=== PATIENT | female | born 2000 | race Caucasian/White ===

== ENCOUNTER 2024-08-09 08:37 | Outpatient (CLI) | payer BC, SELFPAY | END 2024-08-09 08:38 | disposition home or self-care (01) | LOC: NFLDREF 08-11 11:03 | PROVIDERS: Visit Provider Physician Assistant | DX: R30.0 Dysuria (principal); R53.83 Other fatigue | CPT/HCPCS: 87086 ==

== ENCOUNTER 2024-12-02 18:07 | Emergency (ER) | payer BC, SELFPAY ==
--- OUTSIDE RECORDS SUMMARY | 2024-12-02 18:10 | XMS_ITS ---
Author Organization [facility] Address [address] [place], [place] [id number] Care Team Providers Care Cash Application Clerk Name Role Phone Catherine Sanford [facility] Provider REASON FOR VISIT PA for QFT Social History Sex Assigned At : Social History Observation Description Sex Assigned At Female Encounters Encounter Location Date Provider Diagnosis [facility] [address] [place], [place] [id number] 06/14/2024 Catherine Sanford Plan Of Treatment No Information Progress Notes * Donna COXDOB:1999 (23 yo F)Acc No.[id number]:06/14/2024 Patient: Donna JIMENEZ :2000 A ge:23 Y S ex:Female Address:[facility], [address] * true * Date: Generated for Robi mini/Porter/eTransmitting on: 0 12/02/2024 06:10 PM CLINICAL STAFF PHARMACIST
--- OUTSIDE RECORDS SUMMARY | 2024-12-02 18:10 | XMS_ITS | Encounter Summary ---
Author Organization [facility] Address [address] [place] [address] Phone Care Team Providers Care In Processing Instructor Name Role Phone Catherine Sanford APRN Primary Care Provider Reason for Visit * Reason Comments Asthma METHACHOLINE Encounter Details Date Type Department Care Team (Latest Contact Info) Description 10/10/2024 1:00 PM KNOTTER HAND Diagnostic Test [facility] Pulmonology and Peds Cardiology [address] [facility], [address] [place] [phone] Tristin Paiz MD [address] [facility] [address] [place] [address] Rambo Pisano MD [address] [facility] [address] [place], [place] [id number] Moderate persistent asthma in adult without complication (Primary Dx); Moderate persistent asthma, uncomplicated Social History Tobacco Use Types Packs/Day Years Used Date Smoking Tobacco: Never Smokeless Tobacco: Never Chew Alcohol Use Standard Drinks/Week Comments Never 0 (1 standard drink = 0.6 oz pur e alcohol) [facility] Utilities Answer Date Recorded In the past 12 months has [employer], gas, oil, or water company threatened to shut off services in your home? No 10/29/2023 Hunger Vital Sign Answer Date Recorded Within the past 12 months, y ou worried that your food would run out before you got the money to buy more. Never true 10/29/19 24 Within the past 12 months, t he food you bought just didn't last and you didn't have money to get more. Never true 10/29/2023 PRAPARE - Transportation Answer Date Re corded In the past 12 months, has l ack of transportation kept you from medical appointments or from getting medications? No 10/19 In the past 12 months, has l ack of transportation kept you from meetings, work, or from getting things needed for daily living? No 10/29/2023 Housing Stability Vital Sign Answer Jose Ramon e Recorded In the last 12 months, was t here a time when you were not able to pay the mortgage or rent on time? No 10/29/2023 In the last 12 months, how many places have you lived? 1 10/29/2023 In the last 12 months, was t here a time when you did not have a steady place to sleep or slept in a [facility] (including now)? No 10/29/2023 Interpersonal Safety Answer Date Record ed Feels Unsafe at Home or Work/School No 10/29/2023 Feels Threatened by Someone No 10/19 Does Anyone Try to Keep You From Having Contact with Others or Doing Things Outside Your Home? No 10/29/2023 Physical Signs of Abuse Present No 10/29/2023 Comments No Sex and Gender Information Value Date Recorded Sex Assigned at Not on file Legal Sex Female 3:27 PM KNOTTER HAND Gender Identity Not on file Sexual Orientation Not on file documented as of this encounter Procedure Notes * Tristin Paiz MD - 10/10/2024 2:58 PM CSTAssociated Order(s): PULMONARY FUNCTION TESTING Methacholine challenge test. Data. FEV1 over FVC ratio is 92 with FEV1 at 3.73 L or 102% predicted and FVC at 4.04 L or 95% predicted. Flow volume loops are normal. Patient is gradually exposed to increasing doses of methacholine. Patient FEV1 dropped by 7% on the5th dosage. Interpretation. The spirometry is normal. As compared to October 07, 2024 data, FEV1 and FVC are not significantlychanged. 2. Methacholine challenge testing is negative. TER HAND documented in this encounter Miscellaneous Notes * Addendum Note - Tristin Paiz MD - 10/10/2024 3:00 PM CSTAddended by: TRISTIN PAIZ MD on: 10/10/2024 03:00 PM Modules accepted: Level of Service TER HAND * Addendum Note - Adri Rinaldi RT - 10/10/2024 2:22 PM CSTAddended by: ADRI ABBOTT on: 10/10/2024 02:22 PM Modules accepted: Orders TER HAND documented in this encounter Plan of Treatment Not on file documented as of this encounter Procedures Procedure Name Priority Date/Time Associated Diagnosis Comments PULMONARY FUNCTION TESTING Routine 10/10/2024 12:53 PM KNOTTER HAND Moderate persistent asthma, uncomplicated documented in this encounter Results * PULMONARY FUNCTION TESTING (10/10/2024 12:53 PM KNOTTER HAND) FVC Pre BD 4.04 L [facility] FVC %Pred 95 L [facility] FVC Post BD 3.91 L [facility] FVC %Change Post BD -3 L [facility] FEV1 Pre BD 3.73 L [facility] FEV1 %Pred 102 L [facility] FEV1 Post BD 3.71 L [facility] FEV1 %Change Post BD 0 L [facility] [id number] Pre BD 92 % [facility] [id number] %Pred 106 % [facility] [id number] Post BD 95 % [facility] [id number] %Change Post BD 2 % [facility] FEF Max Pre BD 7.74 L/sec [facility] FEF Max %Pred 116 L/sec [facility] FEF Max Post BD 8.78 L/sec [facility] FEF Max %Change Post BD 13 L/sec [facility] 10/10/2024 12:5 3 PM KNOTTER HAND Narrative [facility] - 10/10/2024 2:58 PM KNOTTER HAND Tristin Paiz MD 10/10/2024 3:00 PM Methacholine challenge test. Data. FEV1 over FVC ratio is 92 with FEV1 at 3.73 L or 102% predicted and FVC at 4.04 L or 95% predicted. Flow volume loops are normal. Patient is gradually exposed to increasing doses of methacholine. Patient FEV1 dropped by 7% on the 5th dosage. Interpretation. The spirometry is normal. As compared to October 07, 2024 data, FEV1 and FVC are not significantly changed. 2. Methacholine challenge testing is negative. us Rambo Pisano MD PULMONARY FUNCTION TESTS Final R esult Performing Organization Address City/State/[facility] Co de Phone Number [facility] [address] [place] [address], documented in this encounter Visit Diagnoses Diagnosis Moderate persistent asthma in adult without complication- Primary Moderate persistent asthma, uncomplicated Unspecified asthma documented in this encounter Administered Medications Inactive Administered Medications - up to 3 most recent administrations Medication Order MAR Action Action Date Dose Rate Site albuterol sulfate 2.5 mg /3 mL (0.083 %) nebulizer solution 2.5 mg 2.5 mg (3 mL), Nebulization, ONE TIME, On Thu10/10/24 at 1425, For 1 doseIndications:Moderate persistent asthma in adult without complication Given 10/10/2024 2:21 PM KNOTTER HAND 2.5 mg methacholine chloride 0 mg/mL nebulization solution 6 breath, Inhalation, ONE TIME, On Thu10/10/24 at 1425, For 1 doseIndications:Moderate persistent asthma in adult without complication Given 10/10/2024 2:21 PM KNOTTER HAND 6 breaths methacholine chloride 0.1875 mg/3 mL (0.0625 mg/mL) nebulization solution 6 breath, Nebulization, ONE TIME, On Thu10/10/24 at 1425, For 1 doseIndications:Moderate persistent asthma in adult without complication Given 10/10/2024 2:21 PM KNOTTER HAND 6 breaths methacholine chloride 0.75 mg/3 mL (0.25 mg/mL) nebulization solution 6 breath, Nebulization, ONE TIME, On Thu10/10/24 at 1430, For 1 doseIndications:Moderate persistent asthma in adult without complication Given 10/10/2024 2:21 PM KNOTTER HAND 6 breaths methacholine chloride 12 mg/3 mL (4 mg/mL) nebulization solution 6 breath, Nebulization, ONE TIME, On Thu10/10/24 at 1430, For 1 doseIndications:Moderate persistent asthma in adult without complication Given 10/10/2024 2:21 PM KNOTTER HAND 6 breaths methacholine chloride 3 mg/3 mL (1 mg/mL) nebulization solution 6 breath, Nebulization, ONE TIME, On Thu10/10/24 at 1430, For 1 doseIndications:Moderate persistent asthma in adult without complication Given 10/10/2024 2:21 PM KNOTTER HAND 6 breaths methacholine chloride 48 mg/3 mL (16 mg/mL) nebulization solution 6 breath, Nebulization, ONE TIME, On Thu10/10/24 at 1435, For 1 doseIndications:Moderate persistent asthma in adult without complication Given 10/10/2024 2:21 PM KNOTTER HAND 6 breaths documented in this encounter Care Teams In Processing Instructor Relationship Specialty Start Date End Date Catherine Sanford, RANDEE [facility] [address] [place] [address] [place] [address] PCP - General Family Medicine 11/30/19 documented as of this encounter
--- OUTSIDE RECORDS SUMMARY | 2024-12-02 18:10 | XMS_ITS | Encounter Summary ---
Author Organization [facility] Address [address] [place] [address] Phone Care Team Providers Care Food And Drink Factory Workers Name Role Phone Catherine Sanford APRN Primary Care Provider Encounter Details Date Type Department Care Team (Late st Contact Info) Description 04/20/2024 Transcribe Orders Non [facility] Referring Docs Identified, No Provider Social History Tobacco Use Types Packs/Day Years Used Date Smoking Tobacco: Never Smokeless Tobacco: Never Chew Alcohol Use Standard Drinks/Week Comments Never 0 (1 standard drink = 0.6 oz pur e alcohol) [facility] Utilities Answer Date Recorded In the past 12 months has e [employer], gas, oil, or water [employer] threatened to shut off services in your [...] place to sleep or slept in a [place] (including now)? No 10/29/2023 Interpersonal Safety Answer [...] on file Legal Sex Female 3:27 PM CASINO FLOOR PERSON Gender Identity Not on file Sexual Orientation Not on file documented as of this encounter Plan of Treatment Not on file documented as of this encounter Visit Diagnoses Not on filedocumented in this encounter Care Teams Food And Drink Factory Workers Relationship Specialty Start Date End Date Catherine Sanford APRN [facility] [address] [place] [address] [place] [address] PCP - General Family Medicine 11/30/19 documented as of this encounter
--- OUTSIDE RECORDS SUMMARY | 2024-12-02 18:11 | XMS_ITS | Encounter Summary ---
Author Organization [facility] Address [address] [place] [address] Phone Care Team Providers Care Dispatcher Maintenance Service Name Role Phone Catherine Sanford APRN Primary Care Provider Encounter Details Date Type Department Care Team (Late st Contact Info) Description 05/03/2019 [facility] Historical [facility] Orthopedics Radiology [address] [phone] Conversion Prov, [facility] Social History Tobacco Use Types Packs/Day Years Used Date Smoking Tobacco: Never Assessed Comments Unknown Sex and Gender Information Value Date Recorded Sex Assigned at Not on file Legal Sex Female 3:27 PM CASTING SORTER Gender Identity Not on file Sexual Orientation Not on file documented as of this encounter Plan of Treatment Not on file documented as of this encounter Procedures Procedure Name Priority Date/Time Associated Diagnosis Comments ARNOL MISC FOR HISTORICAL MIGRATION 05/03/2019 5:07 PM CDT documented in this encounter Results * ARNOL MISC FOR HISTORICAL MIGRATION (05/03/2019 5:07 PM CDT) Anatomical Region Laterality Modality Computed Radiogr aphy 05/03/2019 5:07 PM CDT Narrative 05/03/2019 5:07 PM CDT This exam is part of the [facility] migration. The results may be available through the Clinical Archive option located in the [employer] activities tab. Procedure Note Conversion Prov, [facility] - 06/04/2022 This exam is part of the [facility] migration. The results may be availablethrough the Clinical Archive option located in the [employer] activities tab. us [facility] Conversion Prov X-RAY (OUTSIDE STUDY) Final Result documented in this encounter Visit Diagnoses Not on filedocumented in this encounter Additional Health Concerns Infection Onset Date Last Indicated Resolved Time Suspected COVID-19 10/29/2023 10/29/2023 9:02 AM CASTING SORTER RSV 10/29/2023 10/29/2023 11/05/2023 10:0 3 PM CASTING SORTER Mycoplasma Pneumonia 10/31/2023 10/31/2023 024 10:03 PM CASTING SORTER documented as of this encounter Care Teams Dispatcher Maintenance Service Relationship Specialty Start Date End Date Catherine Sanford APRN [facility] [address] [place] [address] [place] [address] PCP - General Family Medicine 11/30/19 documented as of this encounter
--- OUTSIDE RECORDS SUMMARY | 2024-12-02 18:11 | XMS_ITS | Encounter Summary ---
Author Organization [facility] Address [address] [facility] [place] [address] Phone Care Team Providers Care Treating Plant Pumper Name Role Phone Lucas Sanford APRN, CNP Primary Care Prov ider Drake Mendenhall MD Unavailable Encounter Details Date Type Department Care Team (Late st Contact Info) Description 04/02/2020 10:50 AM CDT Hospital Encounter [facility] GI Lab Periop [address] [place] [address] Lux Florez MD [address] [place] [address] Social History Tobacco Use Types Packs/Day Years Used Date Smoking Tobacco: Never Smokeless Tobacco: Never Alcohol Use Standard Drinks/Week Comments Never 0 (1 standard drink = 0.6 oz pur e alcohol) AUDIT-C Answer Date Recorded Frequency of Alcohol Consumption Never 02/08/2019 Average Number of Drinks Not on file 019 Frequency of Binge Drinking Not on file 01/18 Comments No Sex and Gender Information Value Date Recorded Sex Assigned at Not on file Legal Sex Female 10:18 AM CDT Gender Identity Not on file Sexual Orientation Not on file COVID-19 Exposure Response Date Recorded In the last 10 days, have yo u been in contact with someone who was confirmed or suspected to have Coronavirus/COVID-19? No / Unsure 04/18/2022 3:41 PM CDT documented as of this encounter OR Notes * OR Surgeon - Perla Garcia MD - 04/03/2020 1:33 PM CDT 24 HOUR pH MONITORING (SANCHEZ) STUDY PROCEDURE NOTE Donna Jarvis 2000 female LUCAS Stefanie SANFORD, MOLD MOVER, ENGAGEMENT MGR DATE OF PROCEDURE:04/03/2020 PHYSICIAN OR SURGEON: Lux Florez MD FELLOW: PERLA GARCIA MD PRE-PROCEDURE DIAGNOSIS: Dyspepsia Dysphagia POST-PROCEDURE DIAGNOSIS: Pathological acid Reflux with elevated DeMeester score PROCEDRURE INFO: The patient presented to the gastroenterology lab for the study.Esophageal Manometry had been performed. The SANCHEZ pH probe was deployed endoscopically above the GE junction. The study was carried out and the results were forwarded for interpretation. Patient has been off PPI for the study. FINDINGS: Threshold pH 4.0 Period Durations (HH:MM) Total Upright Supine Post-prandial Total Time 71:52 35:39 36:14 22:47 Analysis time 67:31 31:46 35:45 22:47 Acid Reflux Analysis Total Upright Supine Post-prandial Acid exposure time (HH:MM) 4:04 02:44 01:20 02:20 Acid exposure time (%) 6.0 8.6 3.7 9.5 Number of refluxes 66 51 16 46 Number of long refluxes 13 9 4 7 Longest reflux (min) 33.0 27.1 33.0 27.1 DeMeester Score ( Normal < 14.72) 22.1 Symptom Analysis Food Stuck Sensation Burping Dysphagia No of occurrences 2 10 1 No of symptoms related to reflux 1 1 0 No of symptoms not related to acid reflux 1 9 1 No of reflux periods 66 66 66 Symptom Index (SI) 50 10 0 Symptom sensitivity index (SSI) 1.5 1.5 0 Symptom Association probability (SAP)* *Probability the symptom and reflux are not associated solely by chance (> 95% is significant) 80.4 78.5 0.0 SUMMARY: This study demonstrated multiple episodes of reflux, many of these in the upright position for a DeMeester score of 22.1, which falls in the pathologic range and consistent with gastro-esophageal reflux disease. Referring Physician: * No referring provider recorded for this case * Attending Physician: Lux Florez, * Primary Care Physician: LUCAS SANFORD APN, CULLEN Cosigned by Lux Florez MD at 04/04/2020 12:08 PM CDT Associated attestation - Lux Florez MD - 04/04/2020 12:08 PM CDT Donna Jarvis 19 y.o. 2000 04/04/2020 DATE OF PROCEDURE: 04/02/2020 PHYSICIAN OR SURGEON: Lux Florez MD PROCEDURE PERFORMED: SANCHEZ study Attending Attestation: I have reviewed the SANCHEZ study with the fellow and have personally looked at the findings on the reporting software. I agree with the above interpretation. SANCHEZ study Is abnormal with a DeMeester score of 22.1 which is suggestive of pathologic reflux. However, of note this symptom association probability (SAP) for the symptoms of dysphagia, burping and food bolus sensation was not significant. Lux Florez MD, 04/04/2020, 12:07 PM documented in this encounter Plan of Treatment Not on file documented as of this encounter Visit Diagnoses Not on filedocumented in this encounter Care Teams Treating Plant Pumper Relationship Specialty Start Date End Date Lucas Sanford, RANDEE, CULLEN [address] [place] [address] PCP - General Certified Nurse Practitioner 02/01/19 Drake Mendenhall MD [address] [facility] [address] [facility] [address] [place] [phone] Consulting Physician Pediatric Gastroenterology 02/01/19 documented as of this encounter
--- OUTSIDE RECORDS SUMMARY | 2024-12-02 18:11 | XMS_ITS ---
Author Organization [facility] Address [address] [place], [place] [id number] Care Team Providers Care Machine Tack Puller Name Role Phone Catherine Sanford [facility] Provider [phone] REASON FOR VISIT stone analysis report Social History Sex Assigned At : Social History Observation Description Sex Assigned At Female Encounters Encounter Location Date Provider Diagnosis [facility] [address] [place], [place] [phone] 06/17/2024 Catherine Sanford Plan Of Treatment No Information Progress Notes * Donna COXDOB:1999 (23 yo F)Acc No.[id number]:06/17/2024 Patient: Donna JIMENEZ :2000 A ge:23 Y S ex:Female Address:[facility] [place], [address] * true * Date: Generated for Robi mini/Porter/eTransmitting on: 0 12/02/2024 06:10 PM PATIENT BILLER
--- OUTSIDE RECORDS SUMMARY | 2024-12-02 18:11 | XMS_ITS | Clinical Summary ---
[facility] Organization [facility] Address [address] [place] [address] Phone Care Team Providers Care Upper Leather Cutter Name Role Phone Catherine Sanford APRN Primary Care Provider Allergies No known active allergies Medications * This document contains information received from the source organization and may not represent a complete record from that organization. sertraline (ZOLOFT) 50 mg tablet Take 50 mg by mouth every day Active ondansetron [address] tablet Place 4 mg under the tongue every 6 hours as needed for nausea or vomiting 4 Active ondansetron 4 mg rapid dissolve tabletIndication s:Nausea and vomiting, unspecified vomiting type Take 1 tablet (4 mg total) by mouth 2 (two) times daily as needed for nausea 10 tablet 4 Active Additional Information Patient not taking.Reported on 10/13/2024 minocycline 50 mg capsule Take 50 mg by mouth in the morning and at bedtime Limes Disease Active albuterol HFA 90 mcg/actuation inhalerIndicatio ns:Shortness of breath Take 2 puffs inhaled by mouth every 4 (four) hours as needed for shortness of breath Take before exercise by 20 minutes, do peak flow before and after exercise 18 g 2 4 10/13/20 25 Active inhalational spacing device (AEROCHAMBER) SPACER ONLY Use with albuterol inhaler 1 each 4 Active Active Problems Problem Noted Date Diagnosed Date Shortness of breath 10/13/2024 Eosinophilic esophagitis 10/13/2024 Community acquired bacterial pneumonia 4 RSV infection 10/29/2023 Chronic GERD 10/29/2023 Hypokalemia 10/29/2023 Encounters * This document contains information received from the source organization and may not represent a complete record from that organization. Date Type Department Care Team Description 10/13/2024 8:55 AM HOME SECURITY ALARM INSTALLER Office Visit [facility] [address], [address] [place] [address] Rambo Pisano MD Shortness of breath (Primary Dx); RSV infection; Eosinophilic esophagitis 10/10/2024 1:00 PM HOME SECURITY ALARM INSTALLER Diagnostic Test [facility] [address], [address] [place] [address] Tristin Miranda MD Burr, John S, MD Moderate persistent asthma in adult without complication (Primary Dx); Moderate persistent asthma, uncomplicated 10/10/2024 Orders Only [facility] [address] [facility], [address] [place] [address] Rambo Pisano MD Moderate persistent asthma, uncomplicated (Primary Dx) 10/07/2024 9:30 AM HOME SECURITY ALARM INSTALLER Diagnostic Test [facility] [address], [address] [place] [address] Constance Mcdaniels MD Moderate persistent asthma, uncomplicated; Eosinophilic esophagitis; Allergy to other foods 10/07/2024 Telephone [facility] [address], [address] [place] [address] Rambo Pisano MD 09/28/2024 Telephone Non [facility] Constance Osorio MD from Last 3 Months Immunizations Name Administration Dates Next Due DTaP-Daptacel (Diptheria, Te tanus, Pertussis) 09/23/2005,11/29/2002,02/22/2002,12/13,2001 HEP B/HIB (Comvax) 11/29/2002,2001, 001 Hepatitis A - Pediatric 09/24/2006,03/25/2005 Human Papillomavirus (Gardasil 9) 06/03/2023 INFLUENZA SPLIT VIRUS TRIVAL ENT PF (Fluzone/Flulaval/Fluarix/Afluria PF) 10/06/2017,10/05/2016 Influenza (Afluria Quad) 11/27/2010,10/24/2009 Influenza (Flu Quad PF) 08/28/2020,09/30,10/08/2015,10/05,09/29/2012 Influenza A (H1N1) Injection 11/28/2009,10/24/19 10 Oozkoiw-Zdbkv-Buuqncg - MMR 03/16/2007, 2 Polio Virus (IPOL) 03/16/2007, 2,2001,10/04 T-dap (ADACEL) 06/03/2023,03/16/2013 Varicella (VARIVAX) 03/16/2007,08/09/2002 Family History Medical History Relation Name Comments Sleep Apnea Father Cancer Mother Relation Name Status Comments Brother 1 Alive Brother 2 Alive Father Alive Mother Alive Social History Tobacco Use Types Packs/Day Years Used Date Smoking Tobacco: Never Smokeless Tobacco: Never Chew Tobacco Cessation:Counseling Given: Not Answered Alcohol Use Standard Drinks/Week Comments Never 0 (1 standard drink = 0.6 oz pur e alcohol) [facility] Utilities Answer Date Recorded In the past 12 months has th e [employer], [employer], oil, or water [employer] threatened to shut off services in your [...] place to sleep or slept in a assisted (including now)? No 10/29/2023 Interpersonal Safety Answer [...] on file Legal Sex Female 3:27 PM HOME SECURITY ALARM INSTALLER Gender Identity Not on file Sexual Orientation Not on file Last Filed Vital Signs Vital Sign Reading Time Taken Comments Blood Pressure 108/62 10/13/2024 8:52 AM HOME SECURITY ALARM INSTALLER Pulse 87 10/13/2024 8:52 AM HOME SECURITY ALARM INSTALLER Temperature 37.3 C (99.1 F) 04/15/2024 10:25 AM CDT Respiratory Rate 26 04/15/2024 11:15 AM CDT Oxygen Saturation 99% 10/13/2024 8:52 AM HOME SECURITY ALARM INSTALLER Inhaled Oxygen Concentration - - Weight 67 kg (147 lb 11.3 oz) 10/13/2024 8:52 AM HOME SECURITY ALARM INSTALLER Height 175.3 cm (5' 9) 10/13/2024 8:52 AM HOME SECURITY ALARM INSTALLER Body Mass Index 21.81 10/13/2024 8:52 AM HOME SECURITY ALARM INSTALLER Plan of Treatment Health Maintenance Due Date Last Done Comments Pneumococcal Vaccines (0-64 Years) (1 of 2 - PCV) 2007 Chlamydia Screening 2016 Pap Smear 2022 COVID-19 Vaccine ( season) 2024 01/29/2021, 01/01/2021 Influenza Vaccine (#1) 2024 , 09/30/2018, 09/30/2018, Additional history exists Depression Screening 10/13/2025 10/13/2024, 10/05/2024, 06/17/2024, Additional history exists DTaP/Tdap/Td Vaccines (8 - Td or Tdap) 06/03/2033 06/03/2023, 03/16/2013, 09/23/2005, Additional history exists HIB Vaccines Completed 11/29/2002, 11/19, 2001, Additional history exists Hepatitis B Vaccines Completed 11/29/2002, 11/29/2002, 2001, Additional history exists Hepatitis A Vaccines Completed 09/24/2006, 09/24/2006, 03/25/2005, Additional history exists IPV Vaccines Completed 03/16/2007, 07/20, 2001, Additional history exists MMR Vaccines Completed 03/16/2007, 08/09/2002 Varicella Vaccines Completed 03/16/2007, 08/09/2002 Meningococcal Vaccine (ACWY) Completed 06/02/2019 HPV Vaccines Completed 06/03/2023, 11/2020, 06/02/2019 Rotavirus Vaccines Aged Out No longer eligible based on patient's age to complete this topic Procedures Procedure Name Priority Date/Time Associated Diagnosis Comments PULMONARY FUNCTION TESTING Routine 10/10/2024 12:53 PM HOME SECURITY ALARM INSTALLER Moderate persistent asthma, uncomplicated PULMONARY FUNCTION TESTING Routine 10/07/2024 9:12 AM HOME SECURITY ALARM INSTALLER Moderate persistent asthma, uncomplicated Eosinophilic esophagitis Allergy to other foods from Last 3 Months Results * PULMONARY FUNCTION TESTING (10/10/2024 12:53 PM HOME SECURITY ALARM INSTALLER) FVC Pre BD 4.[address] [facility] FVC %Pred [address] [facility] FVC Post BD 3.[address] [facility] FVC %Change Post BD -[address] [facility] FEV1 Pre BD [address] [facility] FEV1 %Pred [address] [facility] FEV1 Post BD 3.[address] [facility] FEV1 %Change Post BD [address] [facility] [id number] Pre BD 92 % [facility] [id number] %Pred 106 % [facility] [id number] Post BD 95 % [facility] [id number] %Change Post BD 2 % [facility] FEF Max Pre BD 7.74 L/sec [facility] FEF Max %Pred 116 L/sec [facility] FEF Max Post BD 8.78 L/sec [facility] FEF Max %Change Post BD 13 L/sec [facility] 10/10/2024 12:5 3 PM HOME SECURITY ALARM INSTALLER Narrative [facility] - 10/10/2024 2:58 PM HOME SECURITY ALARM INSTALLER Tristin Miranda MD 10/10/2024 3:00 PM Methacholine challenge test. [...] TESTS Final R esult Performing Organization Address City/State/[facility] Co de Phone Number [facility] [address] [place] [address], * PULMONARY FUNCTION TESTING (10/07/2024 9:12 AM HOME SECURITY ALARM INSTALLER) FVC Pre BD 3.[address] [facility] FVC %Pred [address] [facility] FVC Post BD 3.[address] [facility] FVC %Change Post BD [address] [facility] FEV1 Pre BD 3.[address] [facility] FEV1 %Pred [address] [facility] FEV1 Post BD 3.[address] [facility] FEV1 %Change Post BD [address] [facility] [id number] Pre BD 92 % [facility] [id number] %Pred 106 % [facility] [id number] Post BD 93 % [facility] [id number] %Change Post BD 1 % [facility] FEF Max Pre BD 6.93 L/sec [facility] FEF Max %Pred 104 L/sec [facility] FEF Max Post BD 8.09 L/sec [facility] FEF Max %Change Post BD 16 L/sec [facility] SVC Pre BD 3.[address] [facility] SVC %Pred [address] [facility] RV (Pleth) Pre BD 2.[address] [facility] RV (Pleth) %Pred [address] [facility] TLC (Pleth) Pre BD 5.[address] [facility] TLC (Pleth) %Pred [address] [facility] RVTLC (Pleth) Pre BD 40 % [facility] RVTLC (Pleth) %Pred 168 % [facility] DLCOunc Pre BD 32.91 ml/min/mmH g [facility] DLCOunc %Pred 133 ml/min/mmH [facility] 10/07/2024 9:12 AM HOME SECURITY ALARM INSTALLER Narrative [facility] - 10/10/2024 10:40 AM HOME SECURITY ALARM INSTALLER Tristin Miranda MD 10/10/2024 10:44 AM Data. FEV1 over FVC ratio is 92 with FEV1 at 3.62 L or 99% predicted and FVC at 3.92 L or 92% predicted. There is no significant response to albuterol. Total lung capacity is 5.7 L or 99% predicted. Residual volume is 2.3 L or 156% predicted. DLCO is 32.91 or 133% predicted. Flow volume loops are normal. Interpretation. The spirometry is normal. The lung volumes show air trapping which may be explained with early obstructive lung disease with given history of asthma. DLCO is higher than expected which may be normal variation, and unlikely to be due to alveolar hemorrhage in outpatient settings. us Constance Mcdaniels MD PULMONARY FUNCTION TESTS Fin al Result [facility] [address] [place] [address], from Last 3 Months Insurance [place] [employer] [facility] Blue [employer] Commercial (POS, PPO, etc) Address: [place] [address] [facility] Cross Blue Shield Commercial (POS, PPO, etc) Address: [place] [address] [facility] Cross Blue Shield Commercial (POS, PPO, etc) Address: [id number] [place] [phone] [employer] [facility] Cross Blue Shield Commercial (POS, PPO, etc) Address: [facility] [id number] [place] [phone] Advance Directives For more information, please contact: [phone] * Attempt CPR / Full Treatment (Latest Code Status on File) Date Activated Date Inactivated Comments 10/29/2023 5:02 PM 11/02/2023 1:40 PM Care Teams Upper Leather Cutter Relationship Specialty Start Date End Date Catherine Sanford APRN [facility] [address] [place] [address] [address] [place] [id number] PCP - General Family Medicine 11/30/19
--- OUTSIDE RECORDS SUMMARY | 2024-12-02 18:11 | XMS_ITS | Clinical Summary ---
Author Organization [facility] Address [address] [place] [address] Care Team Providers Care Technology Project Manager Name Role Phone Catherine Sanford Primary Care Provider Social History Tobacco Use Types Packs/Day Years Used Date Smoking Tobacco: Never Assessed Inadequate Housing Answer Date Recorded Social Determinants: Housing (Overall Score Help er) 0 12/21/2019 Sex and Gender Information Value Date Recorded Sex Assigned at Female 02/08/2020 12:05 PM CDT Gender Identity Female 02/08/2020 12:05 PM CDT Sexual Orientation Straight 02/08/2020 12 :05 PM CDT Plan of Treatment Health Maintenance Due Date Last Done Comments Depression Screening 2013 HPV Vaccine (1 - 3-dose series) 2016 Meningococcal Serogroup B Vaccine (1 of 2 - Standard) 2017 Chlamydia and Gonorrhea Screening (if sexually active) 2019 DTaP/Tdap/Td Vaccine (7 - Td or Tdap) 03/16/2023 03/16/2013, 09/23/2005, 11/29/2002, Additional history exists COVID-19 Vaccine ( season) 2024 Influenza Vaccine (#1) 2024 8, 10/06/2017, 10/05/2016, Additional history exists Hepatitis B Vaccine Completed 11/29/2002, 2001, 2001 Hepatitis A Vaccine Completed 09/24/2006, 5 Varicella Vaccine Completed 03/16/2007, 08/09/2002 Meningococcal Vaccine Aged Out No meenakshi adan eligible based on patient's age to complete this topic Pneumococcal Vaccine 0-49 Aged Out No longer eligible based on patient's age to complete this topic Care Teams Technology Project Manager Relationship Specialty Start Date End Date Catherine Sanford APNP [address] [place] [address] [place] [address] PCP - General Nurse Practitioner - Family 12/21/19
--- OUTSIDE RECORDS SUMMARY | 2024-12-02 18:11 | XMS_ITS | Encounter Summary ---
[facility] Address [address] [place] [address] Phone Care Team Providers Care Local Company Flatbed Truck Driver Name Role Phone Catherine Sanford APRN Primary Care Provider Encounter Details Date Type Department Care Team (Late st Contact Info) Description 08/23/2020 Scanned Document [facility] [address] [place] [address] Provider, Outside Social History Tobacco Use Types Packs/Day Years Used Date Smoking Tobacco: Never Assessed Comments Unknown Sex and Gender Information Value Date Recorded Sex Assigned at Not on file Legal Sex Female 3:27 PM PARTNER INTEGRATION PLANNER Gender Identity Not on file Sexual Orientation Not on file documented as of this encounter Plan of Treatment Not on file documented as of this encounter Visit Diagnoses Not on filedocumented in this encounter Additional Health Concerns Infection Onset Date Last Indicated Resolved Time Suspected COVID-19 10/29/2023 10/29/2023 9:02 AM PARTNER INTEGRATION PLANNER RSV 10/29/2023 10/29/2023 11/05/2023 10:0 3 PM PARTNER INTEGRATION PLANNER Mycoplasma Pneumonia 10/31/2023 10/31/2023 024 10:03 PM PARTNER INTEGRATION PLANNER documented as of this encounter Care Teams Local Company Flatbed Truck Driver Relationship Specialty Start Date End Date Catherine Sanford APRN [facility] [address] [place] [address] [place] [address] PCP - General Family Medicine 11/30/19 documented as of this encounter
--- OUTSIDE RECORDS SUMMARY | 2024-12-02 18:11 | XMS_ITS | Encounter Summary ---
Author Organization [facility] Address [address] [place] [address] Phone Care Team Providers Care Microfabrication Engineer Manager Name Role Phone Catherine Sanford APRN Primary Care Provider Encounter Details Date Type Department Care Team (Late st Contact Info) Description 02/04/2017 [facility] [place] [facility] Orthopedics Radiology [address] [address] Conversion Prov, [facility] Social History Tobacco Use Types Packs/Day Years Used Date Smoking Tobacco: Never Assessed Comments Unknown Sex and Gender Information Value Date Recorded Sex Assigned at Not on file Legal Sex Female 3:27 PM CHIEF DIGITAL MEDIA OFFICER Gender Identity Not on file Sexual Orientation Not on file documented as of this encounter Plan of Treatment Not on file documented as of this encounter Procedures Procedure Name Priority Date/Time Associated Diagnosis Comments XR UPPER EXTREMITY FOR HISTORICAL MIGRATION 02/04/2017 6:36 PM CDT documented in this encounter Results * XR UPPER EXTREMITY FOR HISTORICAL MIGRATION (02/04/2017 6:36 PM CDT) Anatomical Region Laterality Modality Arm Computed Radiogr aphy 02/04/2017 6:36 PM CDT Narrative 02/04/2017 6:36 PM CDT This exam is part of the [facility] migration. The results may be available through the Clinical Archive option located in the [employer] activities tab. Procedure Note Conversion Prov, [facility] - 06/04/2022 This exam is part of the [facility] migration. The results may be availablethrough the Clinical Archive option located in the [employer] activities tab. us [facility] Conversion Prov X-RAY (OUTSIDE STUDY) Final Result documented in this encounter Visit Diagnoses Not on filedocumented in this encounter Additional Health Concerns Infection Onset Date Last Indicated Resolved Time Suspected COVID-19 10/29/2023 10/29/2023 9:02 AM CHIEF DIGITAL MEDIA OFFICER RSV 10/29/2023 10/29/2023 11/05/2023 10:0 3 PM CHIEF DIGITAL MEDIA OFFICER Mycoplasma Pneumonia 10/31/2023 10/31/2023 024 10:03 PM CHIEF DIGITAL MEDIA OFFICER documented as of this encounter Care Teams Microfabrication Engineer Manager Relationship Specialty Start Date End Date Catherine Sanford APRN [facility] [address] [place] [address] [place] [address] PCP - General Family Medicine 11/30/19 documented as of this encounter
--- OUTSIDE RECORDS SUMMARY | 2024-12-02 18:11 | XMS_ITS | Encounter Summary ---
Author Organization [facility] Address [address] [place] [address] Phone Care Team Providers Care Tool Machinist Name Role Phone Catherine Sanford APRN Primary Care Provider Encounter Details Date Type Department Care Team (Late st Contact Info) Description 11/30/2019 Scanned Document NON LOS REFERRING DOCS Catherine Sanford APRN [facility] [address] [place] [address] [place], [place] [id number] Social History Tobacco Use Types Packs/Day Years Used Date Smoking Tobacco: Never Assessed Comments Unknown Sex and Gender Information Value Date Recorded Sex Assigned at Not on file Legal Sex Female 3:27 PM RESIDENTIAL THERAPIST Gender Identity Not on file Sexual Orientation Not on file documented as of this encounter Plan of Treatment Not on file documented as of this encounter Visit Diagnoses Not on filedocumented in this encounter Additional Health Concerns Infection Onset Date Last Indicated Resolved Time Suspected COVID-19 10/29/2023 10/29/2023 9:02 AM RESIDENTIAL THERAPIST RSV 10/29/2023 10/29/2023 11/05/2023 10:0 3 PM RESIDENTIAL THERAPIST Mycoplasma Pneumonia 10/31/2023 10/31/2023 024 10:03 PM RESIDENTIAL THERAPIST documented as of this encounter Care Teams Tool Machinist Relationship Specialty Start Date End Date Catherine Sanford APRN [facility] [address] [place] [address] [place] [address] PCP - General Family Medicine 11/30/19 documented as of this encounter
--- OUTSIDE RECORDS SUMMARY | 2024-12-02 18:11 | XMS_ITS | Referral Summary ---
Author Organization [facility] Address [address] [place] [address] Care Team Providers Care Pc Installation Engineer Name Role Phone Catherine Sanford Primary Care [...] 12 :05 PM CDT Plan of Treatment Not on file Care Teams Pc Installation Engineer Relationship Specialty Start Date End Date Catherine Sanford APNP [address] [place] [address] [place] [address] PCP - General Nurse Practitioner - Family 12/21/19
--- OUTSIDE RECORDS SUMMARY | 2024-12-02 18:11 | XMS_ITS | Encounter Summary ---
[facility] [address] [place] [address] Phone Care Team Providers Care Union Organiser Name Role Phone Catherine Sanford APRN Primary Care Provider Encounter Details Date Type Department Care Team (Late st Contact Info) Description 11/22/2020 Scanned Document [facility] [place] [address] [place] [address] Provider, Outside Social History Tobacco Use Types Packs/Day Years Used Date Smoking Tobacco: Never Assessed Comments Unknown Sex and Gender Information Value Date Recorded Sex Assigned at Not on file Legal Sex Female 3:27 PM RETURNED MATERIALS INSPECTOR Gender Identity Not on file Sexual Orientation Not on file documented as of this encounter Plan of Treatment Not on file documented as of this encounter Visit Diagnoses Not on filedocumented in this encounter Additional Health Concerns Infection Onset Date Last Indicated Resolved Time Suspected COVID-19 10/29/2023 10/29/2023 9:02 AM RETURNED MATERIALS INSPECTOR RSV 10/29/2023 10/29/2023 11/05/2023 10:0 3 PM RETURNED MATERIALS INSPECTOR Mycoplasma Pneumonia 10/31/2023 10/31/2023 024 10:03 PM RETURNED MATERIALS INSPECTOR documented as of this encounter Care Teams Union Organiser Relationship Specialty Start Date End Date Catherine Sanford APRN [facility] [address] [place] [address] PCP - General Family Medicine 11/30/19 documented as of this encounter
--- OUTSIDE RECORDS SUMMARY | 2024-12-02 18:11 | XMS_ITS | Clinical Summary ---
Author Organization [facility] Address [address] [place] [address] Phone Care Team Providers Care Director Of Environmental Services Name Role Phone Catherine Sanford APRN, CNP Primary Care Prov ider Drake Mendenhall MD Unavailable Lux Florez MD Unavailable [phone] Allergies No known active allergies Medications omeprazole (PRILOSEC) 20 MG CAPSULE DELAYED RELEASE Take 1 Cap by mouth 2 times daily. 180 Cap 3 04/04/2020 Active Active Problems Problem Noted Date Diagnosed Date Gastroesophageal reflux disease with esophagitis 04/04/2020 Social History Tobacco Use Types Packs/Day Years [...] Sign Reading Time Taken Comments Blood Pressure 110/72 04/04/2020 11:17 AM CDT Pulse 72 04/04/2020 11:17 AM CDT Temperature 37 C (98.6 F) 04/04/2020 11:17 AM CDT Respiratory Rate 16 03/30/2020 10:44 AM CDT Oxygen Saturation 100% 03/30/2020 10:44 AM CDT Inhaled Oxygen Concentration - - Weight 62.6 kg (138 lb) 04/04/2020 11:17 AM CDT Height 172.7 cm (5' 8) 04/04/2020 11:17 AM CDT Body Mass Index 20.98 04/04/2020 11:17 AM CDT Plan of Treatment Health Maintenance Due Date Last Done Comments Hepatitis C Virus (HCV) Screening 2001 Meningococcal B Immunization (1 of 2 - Standard) 2017 Pap Smear 2022 Influenza Immunization (#1) 06/19/202410/2021, 09/13/2021, 08/28/2020, Additional history exists SARS-COV-2 Immunization () 06/19/2024 10/06/2022, 09/11/2021, 01/29/2021, Additional history exists Respiratory Syncytial Virus (RSV) Immunization (Adult) (1 - 1-dose 75+ series) 2076 Hepatitis B Immunization Completed 003, 2001, 2001 Hepatitis A Immunization Discontinued 09/24/2006, 04/2005 Measles Mumps Rubella (MMR) Immunization Discontinued 03/16/2007, 08/09/2002 Polio (IPV) Immunization Discontinued 007, 08/09/2002, 2001, Additional history exists Varicella Immunization Discontinued 03/16/2007, 2001 Meningococcal Immunization (ACWY) Completed 06/02/2019 DTaP/Tdap/Td Immunization Discontinued 2022, 03/16/2013, 09/23/2005, Additional history exists Human Papillomavirus (HPV) Immunization Completed 06/03/2023, 04/19/2021, 06/02/2019 TdaP Immunization Completed 06/03/2023, 03/16/2013 Pneumococcal Immunization Combined Aged Out No longer eligible based on patient's age to complete this topic Rotavirus Immunization Aged Out No lo nger eligible based on patient's age to complete this topic Insurance [email or web address] [place] [facility] [employer] [place] [facility] * Guarantor: [facility] Account Type Relation to Patient Date of Phone Billing Address Institutional Other [address] [facility] [address] [address] [place] [address] Care Teams Director Of Environmental Services Relationship Specialty Start Date End Date Catherine Sanford APRN, SHIFT PRODUCTION SUPERVISOR [address] [facility] [address] [place] [address] PCP - General Certified Nurse Practitioner 02/01/19 Drake Mendenhall MD [address] [facility] [address] [place] [address] Consulting Physician Pediatric Gastroenterology 02/01/19 Lux Florez MD [address] [place] [address] Consulting Physician Gastroenterology 04/04/20
--- OUTSIDE RECORDS SUMMARY | 2024-12-02 18:11 | XMS_ITS ---
Author Organization [facility]. Address [address] [place], [place] [address] Care Team Providers Care Patient Manager Name Role Phone Claribel Catherine Primary Care Provider Results Component Value Reference Range Notes QUANTIFERON - TB GOLD Reviewed date:06/18/2024 09:42:46 AM Interpretation: Performing Lab: Notes/Report: QFT CRITERIA Comment QuantiFERON-TB Gold Plus is a qualitative indirect test for M tuberculosis infection (including disease) and is intended for use in conjunction with risk assessment, radiography, and other medical and diagnostic evaluations. The QuantiFERON-TB Gold Plus result is determined by subtracting the Nil value from either TB antigen (Ag) value. The Mitogen tube serves as a control for the test. Test performed at: [facility] [address], [id number]. Phone: [phone]. Technology Director: Kirk Harrison, PhD QUANTIFERON Negative Negative No response to M tuberculosis antigens detected. Infection with M tuberculosis is unlikely, but high risk individuals should be considered for additional testing (ATS/IDSA/CDC Clinical Practice Guidelines, 2017). The reference range is an Antigen minus Nil result of <0.35 IU/mL. The specimen received for QuantiFERON testing was incubated by the ordering institution. Specific procedures outlined in our Directory of Services and in the package insert for the QuantiFERON Gold (In Tube) test must be followed to enable for proper stimulation of cells for the production of interferon gamma. Chemiluminescence immunoassay methodology Test performed at: [facility] [place], [address] [place] [address], [id number]. Phone: [phone]. Technology Director: Kirk Harrison PhD NIL VALUE 0.01 Test performed at: [facility], [address] [place] [address], [id number]. Phone: [phone]. Technology Director: Kirk Harrison PhD MITOGEN VALUE > 10.00 Test performed at: [facility], [address] [place] [address], [id number]. Phone: [phone]. Technology Director: Kirk Harrison PhD TB1 AG VALUE 0.02 Test performed at: [facility], [address] [place] [address], [id number]. Phone: [phone]. Technology Director: Kirk Harrison PhD TB2 AG VALUE 0.02 Test performed at: [address], [id number]. Phone: [phone]. Technology Director: Kirk Harriosn PhD Unless otherwise indicated, all tests performed at: [facility] (CLIA#: [id number]) NPI# [id number] [place] [address] Technology Director: SANA BARNES M.D. PDF Report ADTX REASON FOR VISIT Quantiferon Gold TB test Medications Medication SIG (Take, Route, Frequency, Duration) Notes Start Date End Date Status Doxycycline 40 MG 1 capsule in the mor mendez on an empty stomach Orally Once a day Active EpiPen 2-Jas 0.3 MG/0.3ML as directed In jection as directed for 1 month Active Sertraline HCl 50 MG 1 tablet Orally daily Active Social History Sex Assigned At : Social History Observation Description Sex Assigned At Female Encounters Encounter Location Date Provider Diagnosis [address] [place] [place], [place] [id number] 06/14/2024 Catherine Warwick Tuberculosis screening Z11.1 Assessments Encounter Date Diagnosis (ICD Code) Assessment Notes Treatment Notes Treatment Clinical Notes Section Notes 06/14/2024 Tuberculosis screening (ICD-10 - Z11.1) Plan Of Treatment No Information Progress Notes * Donna SEGOVIADOB:1999 (23 yo F)Acc No.[id number]:06/14/2024 Progress Notes Patient: Boo LOMBARDO Donna MADDOX Provider: Boo Sanford CNP :2000 A ge:23 Y S ex:Female Date:06/14/2024 Address:[facility] [address], [place], [facility] Subjective: * Chief Complaints: * 1 . Quantiferon Gold TB test. * Medical History: * Medications: T aking Doxycycline 40 MG Capsule Delayed Release 1 capsule in the morning on an empty stomach Orally Once a day , Taking EpiPen 2-Jas 0.3 MG/0.3ML Solution Auto- injector as directed Injection as directed , Taking Sertraline HCl 50 MG Tablet 1 tablet Orally daily Objective: * Vitals: Assessment: * Assessment: 1. T uberculosis screening - Z11.1 Plan: * Treatment: * Labs: * L ab: QUANTIFERON - TB GOLD Value Reference Range M ITOGEN VALUE > 10.00 - IU/ml * T B1 AG VALUE 0.02 - IU/ml * N [place] VALUE 0.01 - IU/ml * Q FT CRITERIA Comment - * Q UANTIFERON Negative Negative - * T B2 AG VALUE 0.02 - IU/ml * P DF Report ADTX - * Catherine Sanford 06/18/20 24 09:42:37 AM CDT > Tb test is negative.This lab was reviewed by Catherine Sanford on 06/18/2024 at 09:42 AM CDT * Procedure Codes: 8 6480 TB TEST, CELL IMMUN MEASURE, 94224 VENIPUNCT, ROUTINE*, Modifiers: 59 * Images: Billing Information: * Visit Code: * Procedure Codes: 35443 TB TEST, CELL IMMUN MEASURE. 79217 VENIPUNCT, ROUTINE*. Modifiers: 59 * Sign off status: Completed true * Provider: Boo Sanford CNP Date: 0 06/14/2024 Generated for Marni morse/Porter/Zaire on: 0 12/02/2024 06:10 PM DEVELOPMENT AND PLANNING ENGINEER
--- OUTSIDE RECORDS SUMMARY | 2024-12-02 18:11 | XMS_ITS | Clinical Summary ---
Author Organization [facility] Address [facility] [place] [address] Care Team Providers Care Flexographic Printing Machinist Name Role Phone Unavailable Primary Care Provider Unavailabl e Social History Tobacco Use Types Packs/Day Years Used Date Smoking Tobacco: Never Assessed Comments Unknown Sex and Gender Information Value Date Recorded Sex Assigned at Not on file Legal Sex Female 7:06 PM SHOT MAN Gender Identity Not on file Sexual Orientation Not on file Last Filed Vital Signs Vital Sign Reading Time Taken Comments Blood Pressure 112/64 03/19/2016 11:18 AM CDT Pulse 80 03/23/2015 11:12 AM CDT Temperature - - Respiratory Rate - - Oxygen Saturation - - Inhaled Oxygen Concentration - - Weight 50.3 kg (111 lb) 03/19/2016 11:18 AM CDT Height 168.9 cm (5' 6.5) 03/19/2016 11:18 AM CD T Body Mass Index 17.65 03/19/2016 11:18 AM CDT Plan of Treatment Health Maintenance Due Date Last Done Comments Cervical Cancer Screening Pap Smear (Age 21 to 29) Every 3 Years 2001 Cervical Cancer Screening 2001 Annual Physical 2004 HPV Vaccines (1 - 3-dose series) 2016 Meningococcal B Vaccine (1 of 2 - Standard) 2017 Hepatitis C 2019 DTaP, Tdap and Td Vaccines (6 - Td or Tdap) 03/16/2023 03/16/2013, 09/23/2005, 11/29/2002, Additional history exists COVID-19 Vaccine ( - 2023- season) 2024 Influenza Adult (#1) 2024 10/08/2015, 10/05/2014, 08/18/2013, Additional history exists Hepatitis B Vaccines Completed 11/29/2002, 2001, 2001 Meningococcal Vaccine Aged Out No meenakshi adan eligible based on patient's age to complete this topic Pneumococcal Vaccine: Pediatrics (0 to 5 Years) and At-Risk Patients (6 to 64 Years) Aged Out No longer eligible based on patient's age to complete this topic RSV Immunizations Under 20 Months Aged Out No longer eligible based on patient's age to complete this topic
[2024-12-02 18:20] VITALS: BP 123/71; PULSE 78; RESP 16; TEMP 35.8; O2SAT 98; BMI 22.4
--- OUTSIDE RECORDS SUMMARY | 2024-12-02 18:48 | XMS_ITS | Encounter Summary ---
Author Organization [facility] Address [address] [place] [address] Phone Care Team Providers Care Magazine Publisher Name Role Phone Catherine Sanford APRN Primary Care Provider Encounter Details Date Type Department Care Team (Late st Contact Info) Description 11/22/[address] [facility] [address] [place] [address] Provider, Outside Social History Tobacco Use Types Packs/Day Years Used Date Smoking Tobacco: Never Assessed Comments Unknown Sex and Gender Information Value Date Recorded Sex Assigned at Not on file Legal Sex Female 3:27 PM FORESTRY ENGINEER Gender Identity Not on file Sexual Orientation Not on file documented as of this encounter Plan of Treatment Not on file documented as of this encounter Visit Diagnoses Not on filedocumented in this encounter Additional Health Concerns Infection Onset Date Last Indicated Resolved Time Suspected COVID-19 10/29/2023 10/29/2023 9:02 AM FORESTRY ENGINEER RSV 10/29/2023 10/29/2023 11/05/2023 10:0 3 PM FORESTRY ENGINEER Mycoplasma Pneumonia 10/31/2023 10/31/2023 024 10:03 PM FORESTRY ENGINEER documented as of this encounter Care Teams Magazine Publisher Relationship Specialty Start Date End Date Catherine Sanford APRN [facility] [address] [place] [address] PCP - General Family Medicine 11/30/19 documented as of this encounter
--- OUTSIDE RECORDS SUMMARY | 2024-12-02 18:48 | XMS_ITS | Clinical Summary ---
[facility] Organization [facility] Address [address] [place] [address] Phone Care Team Providers Care Blacksmith Supervisor Name Role Phone Catherine Sanford APRN Primary [...] Department Care Team Description 10/13/2024 8:55 AM MIDDLEWARE DEVELOPER Office Visit [facility] [address] [facility] [facility], [address] [place] [address] Rambo Pisano MD Shortness of breath (Primary Dx); RSV infection; Eosinophilic esophagitis 10/10/2024 1:00 PM MIDDLEWARE DEVELOPER Diagnostic Test [facility] [address], [address] [place] [address] Tristin Miranda MD Burr, John S, MD Moderate persistent asthma in adult without complication (Primary Dx); Moderate persistent asthma, uncomplicated 10/10/2024 Orders Only [facility] [address], [address] [place] [address] Rambo Pisano MD Moderate persistent asthma, uncomplicated (Primary Dx) 10/07/2024 9:30 AM MIDDLEWARE DEVELOPER Diagnostic Test [facility] [address], [address] [place] [address] Constance Mcdaniels MD Moderate persistent asthma, uncomplicated; Eosinophilic esophagitis; Allergy to other foods 10/07/2024 Telephone [facility] [address], [address] [place] [address] Rambo Pisano MD 09/28/2024 Telephone Non [facility] Constance Osorio MD from Last 3 Months Immunizations Name Administration Dates Next Due DTaP-Daptacel (Diptheria, Te tanus, Pertussis) 09/23/2005,11/29/2002,02/22/2002,12/13,2001 HEP B/HIB (Comvax) 11/29/2002,2001, 001 Hepatitis A - Pediatric 09/24/2006,03/25/2005 Human Papillomavirus (Gardasil 9) 06/03/2023 INFLUENZA SPLIT VIRUS TRIVAL ENT PF (Fluzone/Flulaval/Fluarix/Afluria PF) 10/06/2017,10/05/2016 Influenza (Afluria Quad) 11/27/2010,10/24/2009 Influenza (Flu Quad PF) 08/28/2020,09/30,10/08/2015,10/05,09/29/2012 Influenza A (H1N1) Injection 11/28/2009,10/24/19 10 Hsiukxp-Qfsjr-Wirpohv - MMR 03/16/2007, 2 Polio Virus (IPOL) [...] drink = 0.6 oz pur e alcohol) [facility] Utilities Answer Date Recorded In the past 12 months has th e [employer], [place], oil, or water [employer] threatened to shut off services in your [...] place to sleep or slept in a retirement (including now)? No 10/29/2023 Interpersonal Safety Answer [...] on file Legal Sex Female 3:27 PM MIDDLEWARE DEVELOPER Gender Identity Not on file Sexual Orientation Not on file Last Filed Vital Signs Vital Sign Reading Time Taken Comments Blood Pressure 108/62 10/13/2024 8:52 AM MIDDLEWARE DEVELOPER Pulse 87 10/13/2024 8:52 AM MIDDLEWARE DEVELOPER Temperature 37.3 C (99.1 F) 04/15/2024 10:25 AM CDT Respiratory Rate 26 04/15/2024 11:15 AM CDT Oxygen Saturation 99% 10/13/2024 8:52 AM MIDDLEWARE DEVELOPER Inhaled Oxygen Concentration - - Weight 67 kg (147 lb 11.3 oz) 10/13/2024 8:52 AM MIDDLEWARE DEVELOPER Height 175.3 cm (5' 9) 10/13/2024 8:52 AM MIDDLEWARE DEVELOPER Body Mass Index 21.81 10/13/2024 8:52 AM MIDDLEWARE DEVELOPER Plan of Treatment Health Maintenance Due Date [...] PULMONARY FUNCTION TESTING Routine 10/10/2024 12:53 PM MIDDLEWARE DEVELOPER Moderate persistent asthma, uncomplicated PULMONARY FUNCTION TESTING Routine 10/07/2024 9:12 AM MIDDLEWARE DEVELOPER Moderate persistent asthma, uncomplicated Eosinophilic esophagitis Allergy to other foods from Last 3 Months Results * PULMONARY FUNCTION TESTING (10/10/2024 12:53 PM MIDDLEWARE DEVELOPER) FVC Pre BD 4.04 L [facility] FVC %Pred 95 L [facility] FVC Post BD 3.91 L [facility] FVC %Change Post BD -3 L [facility] FEV1 Pre BD 3.73 L [facility] FEV1 %Pred 102 L [facility] FEV1 Post BD 3.71 L [facility] FEV1 %Change Post BD 0 L [facility] [id number] Pre BD 92 % [facility] [id number] %Pred 106 % [facility] [id number] Post BD 95 % [facility] [id number] %Change Post BD 2 % [facility] FEF Max Pre BD 7.74 L/sec [facility] FEF Max %Pred 116 L/sec [facility] FEF Max Post BD 8.78 L/sec [facility] FEF Max %Change Post BD 13 L/sec [facility] 10/10/2024 12:5 3 PM MIDDLEWARE DEVELOPER Narrative [facility] - 10/10/2024 2:58 PM MIDDLEWARE DEVELOPER Tristin Miranda MD 10/10/2024 3:00 PM Methacholine [...] TESTS Final R esult Performing Organization Address City/State/[facility] Co de Phone Number [facility] [address] [place] [address], * PULMONARY FUNCTION TESTING (10/07/2024 9:12 AM MIDDLEWARE DEVELOPER) FVC Pre BD 3.92 L [facility] FVC %Pred 92 L [facility] FVC Post BD 3.98 L [facility] FVC %Change Post BD 1 L [facility] FEV1 Pre BD 3.62 L [facility] FEV1 %Pred 99 L [facility] FEV1 Post BD 3.72 L [facility] FEV1 %Change Post BD 2 L [facility] [id number] Pre BD 92 % [facility] [id number] %Pred 106 % [facility] [id number] Post BD 93 % [facility] [id number] %Change Post BD 1 % [facility] FEF Max Pre BD 6.93 L/sec [facility] FEF Max %Pred 104 L/sec [facility] FEF Max Post BD 8.09 L/sec [facility] FEF Max %Change Post BD 16 L/sec [facility] SVC Pre BD 3.40 L [facility] SVC %Pred 79 L [facility] RV (Pleth) Pre BD 2.30 L [facility] RV (Pleth) %Pred 156 L [facility] TLC ([place]leth) Pre BD 5.70 L [facility] TLC (Pleth) %Pred 99 L [facility] RVTLC ([place]leth) Pre BD 40 % [facility] RVTLC (Pleth) %Pred 168 % [facility] DLCOunc Pre BD 32.91 ml/min/mmH g [facility] DLCOunc %Pred 133 ml/min/mmH [facility] 10/07/2024 9:12 AM MIDDLEWARE DEVELOPER Narrative [facility] - 10/10/2024 10:40 AM MIDDLEWARE DEVELOPER Tristin Miranda MD 10/10/2024 10:44 AM Data. [...] MD PULMONARY FUNCTION TESTS Fin al Result [facility] [address] [place] [address], from Last 3 Months Insurance [place] [employer] [facility] Blue Shield Commercial (POS, PPO, etc) Address: [place] [address] [facility] Cross Blue Shield Commercial (POS, PPO, etc) Address: [place] [address] [facility] Cross Blue Shield Commercial (POS, PPO, etc) Address: [phone] [place] [phone] [employer] BLUE SHIELD [facility] Cross Blue Shield Commercial (POS, PPO, etc) Address: [facility] [id number] [place] [phone] Advance Directives For more information, please contact: [phone] * Attempt CPR / Full Treatment (Latest Code Status on File) Date Activated Date Inactivated Comments 10/29/2023 5:02 PM 11/02/2023 1:40 PM Care Teams Blacksmith Supervisor Relationship Specialty Start Date End Date Catherine Sanford APRN [facility] [address] [place] [address] [address] [place] [address] PCP - General Family Medicine 11/30/19
--- OUTSIDE RECORDS SUMMARY | 2024-12-02 18:48 | XMS_ITS | Encounter Summary ---
Author Organization [facility] Address [address] [place] [address] Phone Care Team Providers Care Cargo Service Supervisor Name Role Phone Catherine Sanford APRN Primary Care Provider Encounter Details Date Type Department Care Team (Late st Contact Info) Description 05/03/2019 [facility] Historical [facility] Orthopedics Radiology [address] [address] Conversion Prov, [facility] Social History Tobacco Use Types Packs/Day Years Used Date Smoking Tobacco: Never Assessed Comments Unknown Sex and Gender Information Value Date Recorded Sex Assigned at Not on file Legal Sex Female 3:27 PM BANQUET MANAGER Gender Identity Not on file Sexual Orientation [...] the Clinical Archive option located in the [facility] [employer] activities tab. Procedure Note Conversion Prov, [facility] - 06/04/2022 This exam is part of the [facility] migration. The results may be availablethrough the Clinical Archive option located in the [facility] [employer] activities tab. us [facility] Conversion Prov X-RAY (OUTSIDE STUDY) Final Result documented in this encounter Visit Diagnoses Not on filedocumented in this encounter Additional Health Concerns Infection Onset Date Last Indicated Resolved Time Suspected COVID-19 10/29/2023 10/29/2023 9:02 AM BANQUET MANAGER RSV 10/29/2023 10/29/2023 11/05/2023 10:0 3 PM BANQUET MANAGER Mycoplasma Pneumonia 10/31/2023 10/31/2023 024 10:03 PM BANQUET MANAGER documented as of this encounter Care Teams Cargo Service Supervisor Relationship Specialty Start Date End Date Catherine Sanford APRN [facility] [address] [place] [address] [place] [address] PCP - General Family Medicine 11/30/19 documented as of this encounter
--- OUTSIDE RECORDS SUMMARY | 2024-12-02 18:48 | XMS_ITS | Encounter Summary ---
Author Organization [facility] Address [address] [place] [address] Phone Care Team Providers Care Flavoring Machine Operator Name Role Phone Catherine Sanford APRN Primary Care Provider Reason for Visit * Reason Comments Asthma METHACHOLINE Encounter Details Date Type Department Care Team (Latest Contact Info) Description 10/10/2024 1:00 PM LINING MAKER Diagnostic Test [facility] Cardiology [address] [facility], [address] [place] [id number] Tristin Paiz MD [address] [facility] [address] [place] [address] Rambo Pisano MD [address] [facility] [address] [place], [place] [id number] Moderate persistent asthma in adult without complication (Primary Dx); Moderate persistent asthma, uncomplicated Social History Tobacco Use Types Packs/Day Years Used Date Smoking Tobacco: Never Smokeless Tobacco: Never Chew Alcohol Use Standard Drinks/Week Comments Never 0 (1 standard drink = 0.6 oz pur e alcohol) [facility] Utilities Answer Date Recorded In the past 12 months has [employer], gas, oil, or water company threatened to [...] place to sleep or slept in a senior care (including now)? No 10/29/2023 Interpersonal Safety Answer [...] on file Legal Sex Female 3:27 PM LINING MAKER Gender Identity Not on file Sexual Orientation [...] significantlychanged. 2. Methacholine challenge testing is negative. NG MAKER documented in this encounter Miscellaneous Notes * Addendum Note - Tristin Paiz MD - 10/10/2024 3:00 PM CSTAddended by: TRISTIN PAIZ MD on: 10/10/2024 03:00 PM Modules accepted: Level of Service NG MAKER * Addendum Note - Adri Rinaldi RT - 10/10/2024 2:22 PM CSTAddended by: ADRI ABBOTT on: 10/10/2024 02:22 PM Modules accepted: Orders NG MAKER documented in this encounter Plan of Treatment Not on file documented as of this encounter Procedures Procedure Name Priority Date/Time Associated Diagnosis Comments PULMONARY FUNCTION TESTING Routine 10/10/2024 12:53 PM LINING MAKER Moderate persistent asthma, uncomplicated documented in this encounter Results * PULMONARY FUNCTION TESTING (10/10/2024 12:53 PM LINING MAKER) FVC Pre BD 4.04 L [facility] FVC %Pred 95 L [facility] FVC Post BD 3.91 L [facility] FVC %Change Post BD -3 L [facility] FEV1 Pre BD 3.73 L [facility] FEV1 %Pred 102 L [facility] FEV1 Post BD 3.71 L [facility] FEV1 %Change Post BD 0 L [facility] [id number] Pre BD 92 % [facility] MAU1QFS %Pred 106 % [facility] [id number] Post BD 95 % [facility] EYU2SLH %Change Post BD 2 % [facility] FEF Max Pre BD 7.74 L/sec [facility] FEF Max %Pred 116 L/sec [facility] FEF Max Post BD 8.78 L/sec [facility] FEF Max %Change Post BD 13 L/sec [facility] 10/10/2024 12:5 3 PM LINING MAKER Narrative [facility] - 10/10/2024 2:58 PM LINING MAKER Tristin Paiz MD 10/10/2024 3:00 PM Methacholine [...] TESTS Final R esult Performing Organization Address City/State/[facility] Co de Phone Number [facility] [address] [place] [address], documented in this encounter Visit Diagnoses Diagnosis [...] adult without complication Given 10/10/2024 2:21 PM LINING MAKER 2.5 mg methacholine chloride 0 mg/mL nebulization solution 6 breath, Inhalation, ONE TIME, On Thu10/10/24 at 1425, For 1 doseIndications:Moderate persistent asthma in adult without complication Given 10/10/2024 2:21 PM LINING MAKER 6 breaths methacholine chloride 0.1875 mg/3 mL (0.0625 mg/mL) nebulization solution 6 breath, Nebulization, ONE TIME, On Thu10/10/24 at 1425, For 1 doseIndications:Moderate persistent asthma in adult without complication Given 10/10/2024 2:21 PM LINING MAKER 6 breaths methacholine chloride 0.75 mg/3 mL (0.25 mg/mL) nebulization solution 6 breath, Nebulization, ONE TIME, On Thu10/10/24 at 1430, For 1 doseIndications:Moderate persistent asthma in adult without complication Given 10/10/2024 2:21 PM LINING MAKER 6 breaths methacholine chloride 12 mg/3 mL (4 mg/mL) nebulization solution 6 breath, Nebulization, ONE TIME, On Thu10/10/24 at 1430, For 1 doseIndications:Moderate persistent asthma in adult without complication Given 10/10/2024 2:21 PM LINING MAKER 6 breaths methacholine chloride 3 mg/3 mL (1 mg/mL) nebulization solution 6 breath, Nebulization, ONE TIME, On Thu10/10/24 at 1430, For 1 doseIndications:Moderate persistent asthma in adult without complication Given 10/10/2024 2:21 PM LINING MAKER 6 breaths methacholine chloride 48 mg/3 mL (16 mg/mL) nebulization solution 6 breath, Nebulization, ONE TIME, On Thu10/10/24 at 1435, For 1 doseIndications:Moderate persistent asthma in adult without complication Given 10/10/2024 2:21 PM LINING MAKER 6 breaths documented in this encounter Care Teams Flavoring Machine Operator Relationship Specialty Start Date End Date Catherine Sanford, [facility] [address] [place] [address] [place] [address] PCP - General Family Medicine 11/30/19 documented as of this encounter
--- OUTSIDE RECORDS SUMMARY | 2024-12-02 18:48 | XMS_ITS | Encounter Summary ---
Author Organization [facility] Address [address] [place] [address] Phone Care Team Providers Care Reed Repairer Name Role Phone Catherine Sanford APRN Primary Care Provider Encounter Details Date Type Department Care Team (Late st Contact Info) Description 04/20/2024 Transcribe Orders Non [facility] Referring Docs Identified, No Provider Social History Tobacco Use Types Packs/Day Years Used Date Smoking Tobacco: Never Smokeless Tobacco: Never Chew Alcohol Use Standard Drinks/Week Comments Never 0 (1 standard drink = 0.6 oz pur e alcohol) [facility] Utilities Answer Date Recorded In the past 12 months has e [employer], gas, oil, or water [email or web address] threatened to shut off services in your [...] place to sleep or slept in a snf (including now)? No 10/29/2023 Interpersonal Safety Answer [...] on file Legal Sex Female [address] CLEANING EQUIPMENT OPERATOR Gender Identity Not on file Sexual Orientation Not on file documented as of this encounter Plan of Treatment Not on file documented as of this encounter Visit Diagnoses Not on filedocumented in this encounter Care Teams Reed Repairer Relationship Specialty Start Date End Date Catherine Sanford APRN [facility] [address] [place] [address] [place] [address] PCP - General Family Medicine 11/30/19 documented as of this encounter
--- OUTSIDE RECORDS SUMMARY | 2024-12-02 18:48 | XMS_ITS | Encounter Summary ---
Author Organization [facility] Address [address] [facility] [place] [address] Phone Care Team Providers Care Warp Changer Name Role Phone Lucas Sanford APRN, CNP Primary Care Prov ider Drake Mendenhall MD Unavailable Encounter Details Date Type Department Care Team (Late st Contact Info) Description 04/02/2020 10:50 AM CDT Hospital Encounter [facility] GI Lab Periop [address] [place] [address] Lux Florez MD [address] [place] [address] Social History Tobacco Use Types Packs/Day Years [...] NOTE Donna Jarvis 2000 female LUCAS Stefanie SAFNORD, SHEETMETAL WORKER, [employer] DATE OF PROCEDURE:04/03/2020 PHYSICIAN OR SURGEON: Lux [...] Physician: LUCAS SANFORD APN, CULLEN Cosigned by uLx Florez MD at 04/04/2020 12:08 PM CDT Associated attestation - Lux Florez MD - 04/04/2020 12:08 PM CDT oDnna Jarvis 19 y.o. 2000 04/04/2020 DATE OF [...] on filedocumented in this encounter Care Teams Warp Changer Relationship Specialty Start Date End Date Lucas Sanford, RANDEE, CULLEN [address] [place] [address] PCP - General Certified Nurse Practitioner 02/01/19 Drake Mendenhall MD [address] [facility] [facility] [address] [place] [id number] Consulting Physician Pediatric Gastroenterology 02/01/19 documented as of this encounter
--- OUTSIDE RECORDS SUMMARY | 2024-12-02 18:48 | XMS_ITS | Encounter Summary ---
Author Organization [facility] Address [address] [place] [address] Phone Care Team Providers Care Chemist Instrumentation Name Role Phone Catherine Sanford APRN Primary Care Provider Encounter Details Date Type Department Care Team (Late st Contact Info) Description 02/04/2017 [facility] Orthopedics Radiology [address] [phone] Conversion Prov, [facility] Social History Tobacco Use Types Packs/Day Years Used Date Smoking Tobacco: Never Assessed Comments Unknown Sex and Gender Information Value Date Recorded Sex Assigned at Not on file Legal Sex Female 3:27 PM OFFICE DIRECTOR Gender Identity Not on file Sexual Orientation [...] CDT This exam is part of the [facility] migration. The results may be available through the Clinical Archive option located in the the Shelf activities tab. Procedure Note Conversion Prov, [facility] - 06/04/2022 This exam is part of the [facility] migration. The results may be availablethrough the Clinical Archive option located in the the Shelf activities tab. us [facility] Conversion Prov X-RAY (OUTSIDE STUDY) Final Result documented in this encounter Visit Diagnoses Not on filedocumented in this encounter Additional Health Concerns Infection Onset Date Last Indicated Resolved Time Suspected COVID-19 10/29/2023 10/29/2023 9:02 AM OFFICE DIRECTOR RSV 10/29/2023 10/29/2023 11/05/2023 10:0 3 PM OFFICE DIRECTOR Mycoplasma Pneumonia 10/31/2023 10/31/2023 024 10:03 PM OFFICE DIRECTOR documented as of this encounter Care Teams Chemist Instrumentation Relationship Specialty Start Date End Date Catherine Sanford APRN [facility] [address] [place] [address] [place] [address] PCP - General Family Medicine 11/30/19 documented as of this encounter
--- OUTSIDE RECORDS SUMMARY | 2024-12-02 18:48 | XMS_ITS | Patient Health Record ---
Author Organization [facility]. Address [address] [place], [place] [id number] Care Team Providers Care Seafood Specialist Name Role Phone Catherine Sanford Primary Care Provider [phone] Trish Omalley Unavailable [phone] Allergies No Known Allergies Results Component Value Reference Range Notes STONE ANALYSIS Reviewed date:05/30/2024 08:43:25 AM Interpretation: Performing Lab: Notes/Report: COLOR Collazo Test performed at: [facility], [address] [place] [address], [id number]. Phone: [phone]. Main Entree Cook And Cashier: Sandra Lion, PhD SIZE 2x1 Single piece received. Test performed at: [facility], [address] [place] [address], [id number]. Phone: [phone]. Main Entree Cook And Cashier: Sandra Lion, PhD WEIGHT < 1 Test performed at: [facility], [address] [place] [address], [id number]. Phone: [phone]. Main Entree Cook And Cashier: Sandra Lion, PhD COMPOSITION Comment Please see comment Test performed at: [facility], [address] [place] [address], [id number]. Phone: [phone]. Main Entree Cook And Cashier: Sandra Lion, PhD PLEASE NOTE Comment Calculi report will follow via computer, mail or reducing machine operator delivery. Test performed at: [facility], [address] [place] [address], [id number]. Phone: [phone]. Main Entree Cook And Cashier: Sandra Lion, PhD COMMENT Comment Physician questions regarding Calculi Analysis contact [facility] at: [phone]. Test performed at: [facility], [address], [place], [id number]. Phone: [phone]. Main Entree Cook And Cashier: Sandra Lion, PhD DISCLAIMER Comment This test was developed and its performance characteristics determined by [facility]. It has not been cleared or approved by the Food and Drug Administration. Test performed at: [id number], [address], [place], [id number]. Phone: [phone]. Main Entree Cook And Cashier: Sandra Lion, PhD Unless otherwise indicated, all tests performed at: [employer] [facility] (CLIA#: [id number]) NPI# [id number] [place] [address] Main Entree Cook And Cashier: SANA BARNES M.D. PDF Report ADTX CRP, HIGH SENSITIVITY (HSCRP ) Reviewed date:02/22/2024 11:57:31 AM Interpretation: Performing Lab:[facility], [address] [place] [address], [address] Notes/Report: C-Reactive Protein, high sensitivity <0.20 0.00-3.00 mg/L Risk According To AHA/CDC Guidelines: < 1.0 mg/L Low Cardiovascular Risk 1.0-3.0 mg/L Average Cardiovascular Risk > 3.0 mg/L High Cardiovascular Risk > 10.0 mg/L Acute Inflammation df VITAMIN B12 Reviewed date:02/22/2024 11:57:31 AM Interpretation: Performing Lab:[facility], [address] [place] [address], [address] Notes/Report: Vitamin B12 275 180-914 pg/mL Normal Range: 180-914 pg/mL. Indeterminate Range: 145-180 pg/mL. Deficient Range: <=145 pg/mL. df URINALYSIS, WITH MICROSCOPIC Reviewed date:02/22/2024 11:57:30 AM Interpretation: Performing Lab:[facility], [address] [place] [address], [address] Notes/Report: df Color, Urine Light Yellow Appearance, Urine Clear Specific Mobile, Urine 1.013 1.005-1.030 . pH, Urine 7.0 5.0-7.0 . Protein, UA Negative Negative, 10 , 2 0 mg/dL Glucose, Urine Normal Normal mg/dL Ketones, Urine Negative Negative mg/dL Bilirubin, Urine Negative Negative Blood, Urine Negative Negative Nitrite, Urine Negative Negative Leukocyte Esterase, Urine Negative Negative Raymond/uL Urobilinogen, Urine Normal Normal mg/dL RBC, Urine 0-2 0-2 /hpf WBC, Urine 0-5 0-5 /hpf Bacteria, Urine 1+ Squamous Epithelial Cells, Urine 0-5 Amorphous Crystal, Urine Present None /hpf URIC ACID Reviewed date:02/22/2024 11:57:30 AM Interpretation: [facility] [address], [address] Notes/Report: Uric Acid 3.9 2.3-6.6 mg/dL df THYROGLOBULIN ANTIBODY (ANTI -TG) Reviewed date:02/22/2024 11:57:30 AM Interpretation: Performing Lab:[address], [address] Notes/Report: Thyroglobulin Antibody <1.0 <=3.9 IU/mL This assay is susceptible to interference from high levels of biotin which may falsely decrease results. Please correlate with clinical findings. df This assay was performed using [employer] reagents and test kits. Values obtained with other assay methods or kits cannot be used interchangeably. THYROXINE (T4), TOTAL Reviewed date:02/22/2024 11:57:30 AM Interpretation: Performing Lab:[address], [address] Notes/Report: T4, Total 9.25 6.09-12.23 ug/dL This assay is susceptible to interference from high levels of biotin which may falsely elevate results. Please correlate with clinical findings. df T3 TOTAL Reviewed date:02/22/2024 11:57:30 AM Interpretation: Performing [facility] [address], [address] Notes/Report: T3 Total 197 80-200 ng/dL This assay is susceptible to interference from high levels of biotin which may falsely elevate results. Please correlate with clinical findings. df LIPID PANEL WITH LDL-CALC Reviewed date:02/22/2024 11:57:30 AM Interpretation: Performing Lab:[address], [address] Notes/Report: Total Cholesterol 183 0-199 mg/dL Triglycerides 100 0-150 mg/dL NCEP Reference Values for Triglycerides: Normal: <150 mg/dL Borderline High: 150 - 199 mg/dL High: 200 - 499 mg/dL Very High: >/= 500 mg/dL HDL Cholesterol 62 >40 mg/dL LDL Cholesterol 101 0-99 mg/dL Cutoff values recommended by the National Cholesterol Education Program: DESIRABLE: Cholesterol <200 mg/dL LDL <100 mg/dL BORDERLINE: Cholesterol 200-239 mg/dL LDL 101-159 mg/dL HIGHER RISK: Cholesterol >240 mg/dL LDL >160 mg/dL, HDL <40 mg/dL Non-HDL Cholesterol 121 No Reference Range mg/dL A reasonable goal for non-HDL cholesterol is one that is 30 mg/dL higher than the LDL cholesterol goal. CHOL/HDL Ratio 3.0 0.0-5.0 . equation to the Chip/Chanelle equation. This new equation is only valid for lipid panels with triglycerides < 400 mg/dL. Studies have demonstrated that this new equation will improve the accuracy of LDL-C, especially in scenarios when LDL-C concentrations are relatively low (< 100 mg/dL), triglycerides are elevated, or patient is non-fasting. References: - Raj Saunders, José Antonio Curiel, Hui Cazares, Nikolas Carter, Nikolas Andujar, Terrence Chacon, and Zackery Luna. 2013. Comparison of a Novel Method vs the Friedewald Equation for Estimating Low-Density Lipoprotein Cholesterol Levels from the Standard Lipid Profile. ISMAEL: The Journal of the [place] Medical Association 310 (19): 2061-68. - Krystin V, Delmis J, Connie A, Juan Antonio M, Lupe R, Sandra E, Ines RS, Jeremy SR, Chip SS. Fasting Versus Nonfasting and Low-Density Lipoprotein Cholesterol Accuracy. Circulation. 2018 Oct 20;137(1):10-19. df On February 10, 2023, [facility] laboratories changed the equation for calculating estimated low-density lipoprotein-cholesterol (LDL-C) from the Friedewald LIPASE Reviewed date:02/22/2024 11:57:30 AM Interpretation: Performing Lab:[facility], [address] [place] [address], [address] Notes/Report: Lipase 22 11-82 units/L df A1C (HEMOGLOBIN A1C) Reviewed date:02/22/2024 11:57:30 AM Interpretation: Performing Lab:[facility], [address] [place] [address], [address] Notes/Report: Hemoglobin A1c 5.5 0-5.6 % df The [place] Diabetes Association recommends that a primary goal of therapy should be a HBA1C of < 7% and that physicians should reevaluate the treatment regimen in patients with HBA1C values consistently > 8%. <5.7% Normal 5.7 - 6.4% Increased risk for diabetes >=6.5% Diagnostic of diabetes <7.0% Goal of therapy >8.0% Action suggested CALPROTECTIN, STOOL Reviewed date:02/25/2024 02:40:47 PM Interpretation: Performing Lab:[facility], [address] [place] [address], [address] Notes/Report: Calprotectin, Fecal 43.8 <=80 ug/g Names of test requested: health lab test [id number] E. hist ag frozen stool <80 ug/g - Normal 80-160 ug/g - Borderline. Recommend follow up within 4-6 weeks >160 ug/g - Elevated. Repeat as needed This assay was performed using [employer] test kits. Values obtained with other assay methods or kits cannot be used interchangeably. NOROVIRUS RNA, QUALITATIVE, RT-PVR Reviewed date:02/25/2024 02:40:47 PM Interpretation: Performing Lab:[facility], [address] [place] [address], [address] Notes/Report: Names of test requested: health lab test [id number] E. hist ag frozen stool REFERENCE RANGE: NOT DETECTED Performing Organization Information: This test was developed and its analytical performance Site ID: EZ and characteristics have been determined by [employer]. Name: [employer]/[facility], It has not been cleared or approved by FDA. This assay has Address: [address] [place] [id number] been validated pursuant to the CLIA regulations and is Director: Ophelia Garcia MD,PhD,KATIE used for clinical purposes. Norovirus RNA Qualitative, Stool NOT DETECTED FECAL LEUKOCYTES Reviewed date:02/25/2024 02:40:47 PM Interpretation: Performing Lab:[facility], [address] [place] [address], [address] Notes/Report: Names of test requested: [facility] lab test [id number] E. hist ag frozen stool Test: Fecal Leukocytes Specimen Source: Anus Specimen Type: Stool Specimen Date: 02/18/2024 11:15 AM Result Date: 02/22/2024 9:16 AM Result Status: Final result Resulting Lab: [facility] [address] [place] [address] STAIN No Neutrophils seen Result Report SEE RESULTS BELOW T3, REVERSE Reviewed date:02/22/2024 11:57:31 AM Interpretation: Performing Lab:[facility], [address] [place] [address], [address] Notes/Report: T3, Reverse 13 8-25 ng/dL This test was developed and its analytical performance characteristics have been determined by [employer]. It has not been cleared or approved by the U.S. Food and Drug Administration. This assay has been validated pursuant to the CLIA regulations and is used for clinical purposes. df Performing Organization Information: Site ID: [facility] Name: [employer] [facility] Address: [address] [place], [place] Director: Pedro Hirsch MD PhD HELICOBACTER PYLORI ANTIGEN, STOOL Reviewed date:02/25/2024 02:40:47 PM Interpretation: Performing Lab:[facility], [address] Notes/Report: HELICOBACTER PYLORI AG, EIA, STOOL Micro Number: [id number] Test Status: Final Specimen Source: Stool Specimen Quality: Adequate H.pylori Ag: Not Detected Antimicrobials, proton pump inhibitors, and bismuth preparations inhibit H. pylori and ingestion up to two weeks prior to testing may cause false negative results. If clinically indicated the test should be repeated on a new specimen obtained two weeks after discontinuing treatment. Reference Range: Not Detected Names of test requested: [facility] lab test [id number] E. hist ag frozen stool Performing Organization Information: Site ID: Name: [facility] Address: [address] [place] [address] Director: Sanju Royal H. pylori Stool Antigen, Stool SEE NOTE [facility] 1, REFERRED Reviewed date:02/25/2024 02:40:47 PM Interpretation: Performing Lab:[facility], [address] Notes/Report: Names of test requested: [facility] lab test [id number] E. hist ag frozen stool Sent to [facility] VITAMIN D, 25-OH Reviewed date:02/22/2024 11:57:31 AM Interpretation: Performing [facility], [address] Notes/Report: Vitamin D, 25-Hydroxy, Total 53.9 30.0-100.0 ng/mL df Suggestive of Deficiency: <20 ng/mL Suggestive of Insufficiency: 20-29 ng/mL Suggestive of Sufficiency: 30-100 ng/mL Suggestive of Toxicity: >150 ng/mL TSH Reviewed date:02/22/2024 11:57:30 AM Interpretation: Performing Lab[facility], [address] Notes/Report: TSH 0.85 0.30-5.33 uIU/mL df TPO ANTIBODY Reviewed date:02/22/2024 11:57:30 AM Interpretation: Performing Lab:[address], [address] Notes/Report: Thyroperoxidase Antibodies 0.7 0.0-9.0 IU/mL df T4 (THYROXINE) FREE Reviewed date:02/22/2024 11:57:30 AM Interpretation: Performing Lab[facility], [address] Notes/Report: T4, Free 0.72 0.60-1.40 ng/dL This assay is susceptible to interference from high levels of biotin which may falsely elevate results. Please correlate with clinical findings. df T3 FREE Reviewed date:02/22/2024 11:57:30 AM Interpretation: Performing Lab:[facility], [address] [place] [address], [address] Notes/Report: T3, Free 3.38 2.00-4.40 pg/mL This assay is susceptible to interference from high levels of biotin which may falsely elevate results. Please correlate with clinical findings including TSH and FT4 results. If clinically indicated, Free T3 by [facility] Dialysis LC/MS may be performed. df SED RATE (ESR) Reviewed date:02/22/2024 11:57:30 AM Interpretation: Performing Lab:[facility], [address] [place] [address], [address] Notes/Report: Sedimentation Rate 6 (Based on doc umented legal sex) 0-20 mm/Hour df HOMOCYSTEINE Reviewed date:02/22/2024 11:57:30 AM Interpretation: Performing Lab:[facility], [address] [place] [address], [address] Notes/Report: Homocysteine 9.51 0.00-15.00 umol/L df FOLATE, SERUM Reviewed date:02/22/2024 11:57:30 AM Interpretation: Performing Lab:[address], [address] Notes/Report: Folate, Serum 18.1 6.0-20.0 ng/mL df IRON / FERRITIN / TRANSFERRI N / TIBC Reviewed date:02/22/2024 11:57:30 AM Interpretation: Performing Lab:[address], [address] Notes/Report: Iron 123 40-170 ug/dL Transferrin 322 200-360 mg/dL Ferritin 11.6 8.0-252.0 ng/mL TIBC 451 250-450 ug/dL Iron Saturation 27 20-55 % df CULTURE: URINE Reviewed date:02/22/2024 09:27:18 AM Interpretation: Performing Lab:[address], [address] Notes/Report: Test: Culture: Urine Specimen Source: Urine - Clean Catch Specimen Type: Urine Specimen Date: 02/18/2024 11:03 AM Result Date: 02/20/2024 5:27 AM Result Status: Final result Abnormal: No Resulting Lab: [facility] [address] [place] [address] CULTURE No growth in 1 day (detection level of 10,000 colonies / ml.) Result Report SEE RESULTS BELOW CMP (COMP METABOLIC PANEL) Reviewed date:02/22/2024 11:57:30 AM Interpretation: Performing [facility], [address] Notes/Report: Sodium 144 133-146 mmol/L Potassium 4.4 3.5-5.1 mmol/L Chloride 104 98-107 mmol/L Carbon Dioxide 28 21-31 mmol/L Blood Urea Nitrogen 8 7-25 mg/dL Creatinine 0.84 0.60-1.30 mg/dL Calcium 10.4 8.3-10.5 mg/dL Glucose 76 70-100 mg/dL Protein, Total 7.6 6.4-8.3 g/dL Albumin 4.9 3.5-5.0 g/dL ALT 22 9-43 units/L Alkaline Phosphatase 73 34-104 units/L AST 36 13-39 units/L Bilirubin, Total 0.7 0.2-1.2 mg/dL df Anion Gap 12 4-13 mmol/L eGFRcr (CKD-EPI 2020) >90 >=60 mL/min/1.73 m2 CBC w/DIFF Reviewed date:02/22/2024 11:57:29 AM Interpretation: Performing Lab:[facility], [address] [place] [address], [place], [address] Notes/Report: df 02/19/2024 5:57 AM: P indicates partial results on a panel have been released. Additional results will follow. df df df 02/19/2024 5:57 AM: This result has been final verified. No additional or changed results are expected. WBC 6.0 3.5-10.5 10'3/uL RBC 5.30 (Based on docume nted legal sex) 3.80-5.20 10'6/uL HGB 14.2 (Based on docume nted legal sex) 11.6-15.4 g/dL HCT 46.9 (Based on docume nted legal sex) 34.0-45.0 % MCV 88.5 80.0-99.0 fL MCH 26.8 27.0-34.0 pg MCHC 30.3 32.0-35.5 g/dL RDW 13.9 11.0-15.0 % PLT 255 150-400 10'3/uL MPV 11.0 8.8-12.1 fL NRBC's 0.0 0.0 % Absolute NRBCs 0.0 No reference ran ge established 10'3/uL Neutrophils 57.5 34.0-73.0 % Lymphocytes 31.3 15.0-50.0 % Monocytes 6.4 1.0-15.0 % Eosinophils 3.2 0.0-8.0 % Basophils 1.3 0.0-2.0 % Absolute Neutrophils 3.4 1.5-8.0 10'3/uL Absolute Lymphocytes 1.9 1.0-4.0 10'3/uL Absolute Monocytes 0.4 0.2-1.0 10'3/uL Absolute Eosinophils 0.2 0.0-0.6 10'3/uL Absolute Basophils 0.1 0.0-0.3 10'3/uL Immature Granulocytes 0.3 No defined reference range % Absolute Immature Granulocytes 0.0 0.00-0.10 10'3/uL AMYLASE, SERUM Reviewed date:02/22/2024 11:57:29 AM Interpretation: Performing Lab:[facility], [address] [place] [address], [address] Notes/Report: Amylase 54 29-103 units/L df PANCREATIC ELASTASE-1 Reviewed date:02/25/2024 02:40:47 PM Interpretation: Performing Lab:[facility], [address] [place] [address], [address] Notes/Report: Adult and Pediatric Reference Ranges for Pancreatic Elastase-1: Normal: >200 mcg/g Moderate Pancreatic Insufficiency: 100-200 mcg/g Severe Pancreatic Insufficiency: <100 mcg/g Elastase-1 (E-1) assay results are expressed in mcg/g, which represent mcg E1/g feces. It is not necessary to interrupt enzyme substitution therapy. Names of test requested: [facility] lab test [id number] E. hist ag frozen stool Performing Organization Information: Site ID: EZ Name: [employer]/[facility], Address: [address] [place], [place] [address] Director: Ophelia Garcia MD,PhD,KATIE Pancreatic Elastase-1 >500 ENTAMOEBA HISTOLYTICA ANTIGE N EIA, STOOL Reviewed date:02/25/2024 02:40:47 PM Interpretation: Performing Lab:[facility], [address] [place] [address], [address] Notes/Report: Performing Organization Information: Site ID: EZ Name: [employer], Address: [address] [place], [place] [address] Director: Ophelia Garcia MD,PhD,KATIE Entamoeba histolytica Antigen, Stool NOT DETECTED One negative specimen does not rule out the possibility of a parasitic infection. REFERENCE RANGE: NOT DETECTED Urine Dip Automated Reviewed date:05/02/2024 01:20:09 PM Interpretation: Performing Lab: Notes/Report: Specific Mobile 1.015 Glucose neg Leukocytes neg Nitrite neg Protein neg Urobilinogen neg pH 6.5 Blood neg Ketones neg Bilirubin neg CBC w/DIFF Reviewed date:02/10/2024 10:05:15 AM Interpretation: Performing Lab:[facility], [address] [place] [address], [place], [address] Notes/Report: ar 02/10/2024 7:46 AM: P indicates partial results on a panel have been released. Additional results will follow. ar 02/10/2024 7:46 AM: This result has been final verified. No additional or changed results are expected. WBC 8.1 3.5-10.5 10'3/uL RBC 5.35 (Based on docume nted legal sex) 3.80-5.20 10'6/uL HGB 14.5 (Based on docume nted legal sex) 11.6-15.4 g/dL HCT 46.8 (Based on docume nted legal sex) 34.0-45.0 % MCV 87.5 80.0-99.0 fL MCH 27.1 27.0-34.0 pg MCHC 31.0 32.0-35.5 g/dL RDW 13.5 11.0-15.0 % PLT 297 150-400 10'3/uL MPV 10.4 8.8-12.1 fL NRBC's 0.0 0.0 % Absolute NRBCs 0.0 No reference ran ge established 10'3/uL Neutrophils 62.6 34.0-73.0 % Lymphocytes 29.4 15.0-50.0 % Monocytes 5.3 1.0-15.0 % Eosinophils 1.6 0.0-8.0 % Basophils 0.7 0.0-2.0 % Absolute Neutrophils 5.1 1.5-8.0 10'3/uL Absolute Lymphocytes 2.4 1.0-4.0 10'3/uL Absolute Monocytes 0.4 0.2-1.0 10'3/uL Absolute Eosinophils 0.1 0.0-0.6 10'3/uL Absolute Basophils 0.1 0.0-0.3 10'3/uL Immature Granulocytes 0.4 No defined reference range % Absolute Immature Granulocytes 0.0 0.00-0.10 10'3/uL CMP (COMP METABOLIC PANEL) Reviewed date:02/10/2024 10:05:15 AM Interpretation: Performing Lab:[facility], [address] [place] [address], [address] Notes/Report: Sodium 140 133-146 mmol/L Potassium 3.7 3.5-5.1 mmol/L Chloride 103 98-107 mmol/L Carbon Dioxide 31 21-31 mmol/L Blood Urea Nitrogen 8 7-25 mg/dL Creatinine 0.83 0.60-1.30 mg/dL Calcium 9.7 8.3-10.5 mg/dL Glucose 83 70-100 mg/dL Protein, Total 7.0 6.4-8.3 g/dL Albumin 4.9 3.5-5.0 g/dL ALT 12 9-43 units/L Alkaline Phosphatase 79 34-104 units/L AST 19 13-39 units/L Bilirubin, Total 0.3 0.2-1.2 mg/dL ar Anion Gap 6 4-13 mmol/L eGFRcr (CKD-EPI 2020) >90 >=60 mL/min/1.73 m2 CULTURE: STOOL Reviewed date:02/12/2024 04:14:53 PM Interpretation: Performing Lab:[facility], [address] [place] [address], [address] Notes/Report: ar Test: Culture: Stool Specimen Source: Rectum Specimen Type: Stool Specimen Date: 02/09/2024 1:42 PM Result Date: 02/12/2024 1:39 PM Result Status: Final result Resulting Lab: [facility] [address] [place] [address] CULTURE No Salmonella, Shigella, Camplyobacter, or E. coli O157:H7 isolated Heavy Growth Normal Enteric Corry Result Report SEE RESULTS BELOW GIARDIA AG, STOOL (EIA) Reviewed date:02/12/2024 04:14:53 PM Interpretation: Performing Lab:[facility], [address] [place] [address], [address] Notes/Report: ar GIARDIA AG, EIA, STOOL Performing Organization Information: Site ID: [facility] Number: [id number] Name: [facility] Test Status: Final Address: [address] [place] [id number] Specimen Source: Stool Director: Sanju Royal Specimen Quality: Adequate Giardia Result 1: Not Detected Reference Range: Not Detected NOTE: Due to intermittent shedding, one negative sample does not necessarily rule out the presence of a parasitic infection. Giardia Antigen, Stool SEE NOTE OVA/PARASITE EXAM Reviewed date:02/12/2024 04:14:53 PM Interpretation: Performing Lab:[facility], [address] [facility], [place], [address] Notes/Report: ar Note: this exam will not detect Cyclospora, Cryptosporidium or Microsporidia species. Note: this exam will not detect Cyclospora, Cryptosporidium or Microsporidia species. TRICHROME NO OVA AND PARASITES SEEN No Ova and Parasites seen WET MOUNT NO OVA AND PARASITES SEEN No Ova and Parasites seen QUANTIFERON - TB GOLD Reviewed date:06/18/2024 09:42:46 [...] control for the test. Test performed at: [address], [id number]. Phone: [phone]. Main Entree Cook And Cashier: Kirk Harrison, PhD QUANTIFERON Negative Negative No [...] gamma. Chemiluminescence immunoassay methodology Test performed at: [facility], [id number]. Phone: [phone]. Main Entree Cook And Cashier: Kirk Harrison, PhD NIL VALUE 0.01 Test performed at: [facility], [id number]. Phone: [phone]. Main Entree Cook And Cashier: Kirk Harrison PhD MITOGEN VALUE > 10.00 Test performed at: [facility], [address] [place] [address], [id number]. Phone: [phone]. Main Entree Cook And Cashier: Kirk Harrison, TB1 AG VALUE 0.02 Test performed at: [facility], [address] [place] [address], [id number]. Phone: [phone]. Main Entree Cook And Cashier: Kirk Harrison, TB2 AG VALUE 0.02 Test performed at: [facility], [address] [place] [address], [id number]. Phone: [phone]. Main Entree Cook And Cashier: Kirk Harrison PhD Unless otherwise indicated, all tests performed at: [employer] (CLIA#: [id number]) NPI# [id number] [id number] Main Entree Cook And Cashier: SANA BARNES M.D. PDF Report ADTX Urine Dip Automated Reviewed date:02/09/2024 01:56:05 PM Interpretation: Performing Lab: Notes/Report: Specific Mobile 1.010 Glucose 1+ Leukocytes 3+ Nitrite neg Protein neg Urobilinogen neg pH 7.0 Blood neg Ketones neg Bilirubin neg CULTURE: URINE Reviewed date:02/11/2024 08:05:19 AM Interpretation: Performing Lab:[facility], [address] [place] [address], [address] Notes/Report: ar Test: Culture: Urine Specimen Source: Urine - Clean Catch Specimen Type: Urine Specimen Date: 02/09/2024 4:51 PM Result Date: 02/11/2024 6:45 AM Result Status: Final result Abnormal: No Resulting Lab: [facility] [address] [place] [address] CULTURE Culture result (>=3 organisms present) indicates possible contamination. Repeat culture if symptoms indicate. Result Report SEE RESULTS BELOW Reason For Referral Reason ongoing constipation Diagnosis 1 Constipation, unspec ified constipation type (K59.00) Referral Organization [facility], [facility]. Referring Provider First Name Catherine Referring Provider Last Name Claribel Referring Provider Speciality Nurse Prac titioner Referred Provider [facility] Referred Provider Specialty Gastroentero logy General Notes Nataliia FIGUEREDO 05/06/20 24 10:06:17 AM >referral faxed to [facility], no PA needed for [employer], pt is aware Referral Priority Routine Medications Medication SIG (Take, Route, Frequency, Duration) Notes Start Date End Date Status Doxycycline 40 MG 1 capsule in the mor mendez on an empty stomach Orally Once a day Active EpiPen 2-Jas 0.3 MG/0.3ML as directed In jection as directed for 1 month Active Sertraline HCl 50 MG 1 tablet Orally daily Active Immunizations Vaccine Route Administration Date Status Comme nts COVID-19 (Pfizer - BioNTech, Monovalent) Unknown 01/01/2021 Administered COVID-19 (Pfizer - BioNTech, Monovalent) Unknown 01/29/2021 Administered DTaP, younger than 7yrs Unknown 2001 Administered DTaP, younger than 7yrs Unknown 2001 Administered DTaP, younger than 7yrs Unknown 02/22/2002 Administered DTaP, younger than 7yrs Unknown 11/29/2002 Administered DTaP, younger than 7yrs Unknown 09/23/2005 Administered Hep A (unspecified formulation) Unknown 03/25/2005 Administered Hep A (unspecified formulation) Unknown 09/24/2006 Administered Hepatitis B (unspecified formulation) Unknown 2001 Administered Hepatitis B (unspecified formulation) Unknown 2001 Administered Hepatitis B (unspecified formulation) Unknown 11/29/2002 Administered Hib (unspecified formulation) Unknown 2001 Administered Hib (unspecified formulation) Unknown 2001 Administered Hib (unspecified formulation) Unknown 11/29/2002 Administered HPV nanovalent IM Intramuscular 06/02/2019 Administered In jection was given without incident. AJ HPV nanovalent IM Intramuscular 04/19/2021 Administered Pt tolerated well. Pt verbalized understanding of immunization education. Pt left office without s/s of adverse reaction. 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 HPV nanovalent IM Intramuscular 06/03/2023 Administered Influenza Unknown 08/28/2020 Administered Influenza (unspecified formulation) Unknown 10/24/2009 Administered Influenza (unspecified formulation) Unknown 11/27/2010 Administered Influenza (unspecified formulation) Unknown 09/29/2012 Administered Influenza (unspecified formulation) Unknown 10/05/2014 Administered Influenza (unspecified formulation) Unknown 10/08/2015 Administered Influenza (unspecified formulation) Unknown 09/30/2018 Administered Meningococcal MCV4P IM Intramuscular 06/02/2019 Administered Injection was given without incident. AJ MMR Unknown 08/09/2002 Administered MMR Unknown 03/16/2007 Administered Poliovirus - IPV Unknown 2001 Administered Poliovirus - IPV Unknown 2001 Administered Poliovirus - IPV Unknown 08/09/2002 Administered Poliovirus - IPV Unknown 03/16/2007 Administered TDaP over 7 yrs. (Adacel) Unknown 03/16/2013 Administered TDaP over 7 yrs. (Adacel) IM Intramuscular 06/03/2023 Administered Varicella Unknown 08/09/2002 Administered Varicella Unknown 03/16/2007 Administered Social History Tobacco Use: Social History Observation Description Date Details (start date - stop date) Never Smoker NA - NA Sex Assigned At : Social History Observation Description Sex Assigned At Female TOBACCO USE - Question Answer Notes Are you a: never Tobacco user Section Notes: No tobacco, no etoh, single, Student at [employer] No tobacco, no etoh, single, Student at [employer] No tobacco, no etoh, single, Student at [employer] No tobacco, no etoh, single, Student at [employer] No tobacco, no etoh, single, Student at [facility] [facility] [employer] in No tobacco, no etoh, single, Student at [employer] [facility] [employer] in No tobacco, no etoh, single, [employer] No tobacco, no etoh, single, Student @[facility]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 No tobacco, no etoh, single, Student @[facility] [employer] [facility] for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 No tobacco, no etoh, single, Student @[facility] for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 No tobacco, no etoh, single, Student @[facility] for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 No tobacco, no etoh, single, Student @[facility] for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 No tobacco, no etoh, single, Student @[facility] for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 No tobacco, no etoh, single, [employer] No tobacco, no etoh, single, [employer] No tobacco, no etoh, single, Student at [facility] in No tobacco, no etoh, single, Student at [employer] No tobacco, no etoh, single, Student at [employer] No tobacco, no etoh, single, Student at [employer] No tobacco, no etoh, single, Student at [employer] No tobacco, no etoh, single, Student at [employer] No tobacco, no etoh, single, Student @[facility] [place] No tobacco, no etoh, single, Student @ [facility] for FOODITY [place]), [facility] Problems Problem Type SNOMED Code ICD Code Onset Dates Problem Status W/U Status Risk Notes Problem 88705236 Postconcussional syndrome (F07.81) Active confirmed Problem 67307185 Obstructive slee p apnea (adult) (pediatric) (G47.33) Active confirmed Problem 520743256 Other seasonal allergic rhinitis (J30.2) Active confirmed Problem 36176000 Chronic pansinus itis (J32.4) Active confirmed Problem 1895609 Hesitancy of micturition (R39.11) Active confirmed Problem 85263354 Concussion witho ut loss of consciousness, sequela (S06.0X0S) 08/19/[address] Colon Problem 53294306 Anxiety (F41.9) Active confirmed Problem 82418137 Vitamin D defici ency (E55.9) Active confirmed Problem 49794605 Esophageal stric ture (K22.2) Active confirmed Problem 58527315 Kidney stone (N20.0) Active confirmed Problem 750148280 B12 deficiency (E53.8) Active confirmed Problem 35702130 Depression, unspecified depression type (F32.9) Active confirmed Problem 46918153 Constipation, unspecified constipation type (K59.00) Active confirmed Problem 452572482 Low ferritin lev el (R79.0) Active confirmed Problem 175348329 GERD without esophagitis (K21.9) Active confirmed Problem 436127173 Raynaud''s phenomenon without gangrene (I73.00) Active confirmed Problem 45487450 Esophageal dysph agia (R13.10) Active confirmed Problem 19744346 Poor appetite (R63.0) Active confirmed Problem 23744223 Closed dislocati on of right shoulder, sequela (S43.004S) Active confirmed Problem 314089072 Abnormal thyroid blood test (R79.89) Active confirmed Problem 162264881 Enlarged adenoid s (J35.2) Active confirmed Problem 3251077296 Ureteral stone w ith hydronephrosis (N13.2) Active confirmed Vital Signs Heart Rate 79 /min 05/02/2024 Temperature 98.1 degrees Fahrenheit 05/02/2024 Blood pressure diastolic 68 mm HG 05/02/2024 Height 67.75 in 05/02/2024 Blood pressure systolic 110 mm HG 05/02/2024 Weight 144.8 lbs 05/02/2024 BMI 22.18 kg/m2 05/02/2024 Encounters Encounter Location Date Provider Diagnosis [facility] [address] [place] [id number] 02/09/2024 Catherine Sanford Diarrhea, unspecified type R19.7 ; Abdominal pain, unspecified abdominal location R10.9 ; Esophageal stricture K22.2 ; Concussion without loss of consciousness, sequela S06.0X0S ; Low ferritin level R79.0 ; Closed dislocation of right shoulder, sequela S43.004S ; Raynaud''s phenomenon without gangrene I73.00 ; GERD without esophagitis K21.9 ; Anxiety F41.9 ; Esophageal dysphagia R13.10 ; Vitamin D deficiency E55.9 ; Poor appetite R63.0 ; Depression, unspecified depression type F32.9 ; B12 deficiency E53.8 ; Abnormal thyroid blood test R79.89 and Enlarged adenoids J35.2 [facility]. [address] [place] [id number] 02/18/2024 Catherine Sanford Abdominal distension (gaseous) R14.0 ; Chronic pansinusitis J32.4 ; Diarrhea, unspecified type R19.7 ; Frequency of micturition R35.0 ; GERD without esophagitis K21.9 ; Generalized abdominal pain R10.84 ; Hesitancy of micturition R39.11 ; Obstructive sleep apnea (adult) (pediatric) G47.33 ; Fatigue, unspecified type R53.83 ; Other seasonal allergic rhinitis J30.2 and Postconcussional syndrome F07.81 [facility]. [address] [place] [id number] [facility] [address] [place] [id number] 05/02/2024 Trish Omalley Kidney stone N20.0 ; Constipation, unspecified constipation type K59.00 and Impacted cerumen, bilateral H61.23 [facility]. [address] [place] [id number] 06/14/2024 [facility] Tuberculosis screening Z11.1 [facility]. [address] [place] [id number] 12/21/2023 [facility]. [address] [place] [id number] 02/12/2024 [facility]. [address] [place] [id number] 02/17/2024 [facility]. [address] [place] [id number] 02/25/2024 [facility], [facility]. [address] [place], [place] [id number] 02/26/2024 [facility], [facility]. [address] [place] [id number] 03/03/2024 [facility]. [address] [place] [id number] 05/05/2024 [facility], [facility]. [address] [place] [id number] 05/06/2024 [facility], [facility]. [address] [place], [place] [id number] 05/30/2024 Trish Omalley [facility]. [address] [place] [id number] 06/13/2024 [facility]. [address] [place] [id number] 06/14/2024 [facility], [facility]. [address] [place] [id number] 06/17/2024 [facility], [facility]. [address] [place], [place] [id number] 02/14/2024 [facility] [address] [place], [place] [id number] 02/15/2024 Catherine [place] Assessments Encounter Date Diagnosis (ICD Code) Assessment Notes Treatment Notes Treatment Clinical Notes Section Notes 02/09/2024 Abdominal pain, unspecified abdominal location (ICD-10 - R10.9) To report any new or worsening symptoms as I may recommend additional workup of diagnostic imaging, either abdominal ultrasound or CT of abdomen and pelvis with contrast. 02/09/2024 Diarrhea, unspecified type (ICD-10 - R19.7) labs ordered today. Ordering stool culture, O and P, Giardia. Initially was going to order C diff, however stool sample provided was too formed for this test to be ordered. Avoid aggravating factors. To keep a journal of symptoms. Await test results, if continued concerns I may recommend referral to Gastroenterology . 02/18/2024 Abdominal distension (gaseous) (ICD-10 - R14.0) 05/02/2024 Kidney stone (ICD-10 - N20.0) stone sent to lab for stone analysis. Encouraged patient to push fluids. If new or worsening of symptoms, contact the office. Patient is agreeable with this plan. She verbalizes understanding and has no further questions or concerns at this time. Reggie Glover D.O. was in suite and available to assist when the visit was rendered. This document used M*Modal Fluency Direction Colon Therapist Software. Colon Therapist errors are not uncommon, and may not have been discovered prior to electronically signing the note. Should you find these errors, please consult the clinician for interpretation (or apply common sense adjustment when safe and appropriate). 05/02/2024 Constipation, unspecified constipation type (ICD-10 - K59.00) constipation regimen reviewed Encouraged patient to take stool softeners twice daily. Mag citrate, [id number] , as discussed. Benefiber [id number] . Encouraged increase in fluids and activity level. Patient is agreeable with this plan 06/14/2024 Tuberculosis screening (ICD-10 - Z11.1) 05/02/2024 Impacted cerumen, bilateral (ICD-10 - H61.23) bilateral ears flushed with warm tap water. Cerumen successfully removed. Eardrum visualized after removal, tempanic membrane clear. Patient tolerated well, left clinic without s/s of distress. wax irrigation performed in the office today. 02/18/2024 Chronic pansinusitis (ICD-10 - J32.4) 02/09/2024 Esophageal stricture (ICD-10 - K22.2) 02/09/2024 Concussion without loss of consciousness, sequela (ICD-10 - S06.0X0S) Dr. Colon 02/18/2024 Diarrhea, unspecified type (ICD-10 - R19.7) 02/18/2024 Frequency of micturition (ICD-10 - R35.0) 02/09/2024 Low ferritin level (ICD-10 - R79.0) 02/09/2024 Closed dislocation of right shoulder, sequela (ICD-10 - S43.004S) 02/18/2024 GERD without esophagitis (ICD-10 - K21.9) 02/18/2024 Generalized abdominal pain (ICD-10 - R10.84) 02/09/2024 Raynaud''s phenomenon without gangrene (ICD-10 - I73.00) 02/09/2024 GERD without esophagitis (ICD-10 - K21.9) 02/18/2024 Hesitancy of micturition (ICD-10 - R39.11) 02/18/2024 Obstructive sleep apnea (adult) (pediatric) (ICD-10 - G47.33) 02/09/2024 Anxiety (ICD-10 - F41.9) 02/09/2024 Esophageal dysphagia (ICD-10 - R13.10) 02/18/2024 Fatigue, unspecified type (ICD-10 - R53.83) 02/18/2024 Other seasonal allergic rhinitis (ICD-10 - J30.2) 02/09/2024 Vitamin D deficiency (ICD-10 - E55.9) 02/09/2024 Poor appetite (ICD-10 - R63.0) 02/18/2024 Postconcussional syndrome (ICD-10 - F07.81) 02/09/2024 Depression, unspecified depression type (ICD-10 - F32.9) 02/09/2024 B12 deficiency (ICD-10 - E53.8) 02/09/2024 Abnormal thyroid blood test (ICD-10 - R79.89) 02/09/2024 Enlarged adenoids (ICD-10 - J35.2) 02/09/2024 Other Reggie Glover D.O. was in suite and available to assist when the visit was rendered. This document used M*[employer] Fluency Direct Colon Therapist Software. Colon Therapist errors are not uncommon, and may not have been discovered prior to electronically signing the note. Should you find these errors, please consult the clinician for interpretation (or apply common sense adjustment when safe and appropriate). 05/02/2024 Other Plan Of Treatment No Information Insurance Providers Payer Name Payer Address Payer Phone Subscriber Number Group Number Insured Name Patient Relationship to Insured Coverage Start Date Coverage End Date [facility] [address] [place] [address] [id number] [facility] Child - Insured has Financial Responsibility Medications Administered Medication Instructions Date of Administration Dosage Notes Cyanocobalamine (B12) 06/21/2020 1 mL Pt verbalized understainging of medication administration. Pt tolerated injection well. Pt left clinic without s/s adverse reactions. kml Kenalog 10/27/2023 40 mg Lot [id number] xp 03/12 Medical (General) History Medical History History ICD Code Esophageal stricture Concussion without loss of consciousness , sequela Low ferritin level Closed dislocation of right shoulder, se quela S43.004S Raynaud''''''''s phenomenon without gang kimi I73.00 GERD without esophagitis K21.9 Vegetarian diet Z78.9 Anxiety F41.9 Esophageal dysphagia R13.10 Vitamin D deficiency E55.9 Poor appetite R63.0 Depression, unspecified depression type F32.9 B12 deficiency E53.8 Abnormal thyroid blood test R79.89 Enlarged adenoids J35.2 Surgical History Surgery Date(Month/Year) Upper GI endoscopy 05/2017 Shoulder 04/2019 Esophagus Stretched 12/2018 Upper GI endoscopy 03/2020 sinus/septum surgery 05/2023 Hospitalization History Reason Date(Month/Year) Croup 12/2021 RSV, pneumonia 10/29-11/02/23 amoebas 07/2022
--- OUTSIDE RECORDS SUMMARY | 2024-12-02 18:48 | XMS_ITS | Encounter Summary ---
Author Organization [facility] Address [address] [place] [address] Phone Care Team Providers Care Etched Circuit Processor Name Role Phone Catherine Sanford APRN Primary Care Provider Encounter Details Date Type Department Care Team (Late st Contact Info) Description 11/30/2019 Scanned Document NON LOS REFERRING DOCS Catherine Sanford APRN [facility] [address] [place] [address] [place], [place] [address] Social History Tobacco Use Types Packs/Day Years Used Date Smoking Tobacco: Never Assessed Comments Unknown Sex and Gender Information Value Date Recorded Sex Assigned at Not on file Legal 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 Gender Identity Not on file Sexual Orientation Not on file documented as of this encounter Plan of Treatment Not on file documented as of this encounter Visit Diagnoses Not on filedocumented in this encounter Additional Health Concerns Infection Onset Date Last Indicated Resolved Time Suspected COVID-19 10/29/2023 10/29/2023 9:02 AM HOGSHEAD BUILDER RSV 10/29/2023 10/29/2023 11/05/2023 10:0 3 PM HOGSHEAD BUILDER Mycoplasma Pneumonia 10/31/2023 10/31/2023 024 10:03 PM HOGSHEAD BUILDER documented as of this encounter Care Teams Etched Circuit Processor Relationship Specialty Start Date End Date Catherine Sanford APRN [facility] [address] [place] [address] [place] [address] PCP - General Family Medicine 11/30/19 documented as of this encounter
--- OUTSIDE RECORDS SUMMARY | 2024-12-02 18:48 | XMS_ITS | Referral Summary ---
Author Organization [facility] Address [address] [place] [address] Care Team Providers Care Scout Name Role Phone Catherine Sanford Primary Care [...] of Treatment Not on file Care Teams Scout Relationship Specialty Start Date End Date Catherine Sanford APNP [address] [place] [address] [place] [address] PCP - General Nurse Practitioner - Family 12/21/19
--- OUTSIDE RECORDS SUMMARY | 2024-12-02 18:48 | XMS_ITS | Encounter Summary ---
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 Gender Identity Not on file Sexual Orientation Not on file documented as of this encounter Plan of Treatment Not on file documented as of this encounter Visit Diagnoses Not on filedocumented in this encounter Additional Health Concerns Infection Onset Date Last Indicated Resolved Time Suspected COVID-19 10/29/2023 10/29/2023 9:02 AM TILE POWER SHEAR OPERATOR RSV 10/29/2023 10/29/2023 11/05/2023 10:0 3 PM TILE POWER SHEAR OPERATOR Mycoplasma Pneumonia 10/31/2023 10/31/2023 024 10:03 PM TILE POWER SHEAR OPERATOR documented as of this encounter Care Teams Job Service Specialist Relationship Specialty Start Date End Date Catherine Sanford APRN [facility] [address] [place] [address] [place] [address] PCP - General Family Medicine 11/30/19 documented as of this encounter
--- OUTSIDE RECORDS SUMMARY | 2024-12-02 18:48 | XMS_ITS | Clinical Summary ---
Author Organization [facility] Address [address] [place] [address] Phone Care Team Providers Care Manager Manufacturing Name Role Phone Catherine Sanford APRN, CNP Primary Care Prov ider Drake Mendenhall MD Unavailable Lux Florez MD Unavailable [phone] Allergies No known active allergies Medications omeprazole [...] patient's age to complete this topic [place] [employer] [facility] [place] [facility] * Guarantor: [facility] Account Type Relation to Patient Date of Phone Billing Address Institutional Other [address] [facility] [address] [place] [address] Care Teams Manager Manufacturing Relationship Specialty Start Date End Date Catherine Sanford APRN, SPEECH THERAPIST TECHNICIAN [address] [facility] [place] [address] [place] [address] PCP - General Certified Nurse Practitioner 02/01/19 Drake Mendenh[place] MD [address] [facility] [address] [place] [address] Consulting Physician Pediatric Gastroenterology 02/01/19 Lux Florez MD [address] [place] [address] Consulting Physician Gastroenterology 04/04/20
--- OUTSIDE RECORDS SUMMARY | 2024-12-02 18:49 | XMS_ITS | Clinical Summary ---
Author Organization [facility] Address [facility] [place] [address] Care Team Providers Care Pearl Glue Operator Name Role Phone Unavailable Primary Care Provider Unavailabl e Social History Tobacco Use Types Packs/Day Years Used Date Smoking Tobacco: Never Assessed Comments Unknown Sex and Gender Information Value Date Recorded Sex Assigned at Not on file Legal Sex Female 7:06 PM CONTRACTS ADVISOR Gender Identity Not on file Sexual Orientation [...]
--- OUTSIDE RECORDS SUMMARY | 2024-12-02 18:49 | XMS_ITS | Clinical Summary ---
Author Organization [facility] Address [address] [place] [address] Care Team Providers Care Doctor Of Dental Surgery Name Role Phone Catherine Sanford Primary Care [...] age to complete this topic Care Teams Doctor Of Dental Surgery Relationship Specialty Start Date End Date Catherine Sanford APNP [address] [place] [address] [place] [address] PCP - General Nurse Practitioner - Family 12/21/19
--- NOTE | 2024-12-02 18:52 | ED.GENADULT ---
HPI - General Adult General Chief complaint: Headache/Migraine Stated complaint: Headache Time Seen by Provider: 12/02/24 18:34 Source: patient Mode of arrival: ambulatory Limitations: no limitations History of Present Illness HPI narrative: 24-year-old female presenting today with the worst headache she has ever had in her life. She states that she started feeling unwell last night woke up this morning with a pain across her forehead and behind her eyes, left side greater than the right that is unbearable. She went to the urgent care this morning and received 2 L of normal saline, IV Benadryl, Toradol, Zofran. She did not have any relief with this treatment. She was sent home with a prescription for 25 mg of Imitrex and Zofran. She states that she took both of those thing shortly after she got home and that only did her headache not get better, throughout the day it is only gotten worse. She feels a significant amount of pressure in her head, she feels off balance but she has not fallen over. She feels foggy. She denies any focal neurologic deficits. She denies blurry vision. She denies syncope or loss of consciousness. She is not having any chest or abdominal pain. No urinary symptoms, no diarrhea, no skin rashes, no fevers, no chills, no vomiting. She does feel nauseated. Denies any recent travel. Patient denies any drug use. Denies tobacco use. Denies alcohol use. Related Data Home Medications ?Medication ?Instructions ?Recorded ?Confirmed sertraline 50 mg tablet (Zoloft) 50 mg PO QDAY 07/29/23 12/02/24 magnesium glycinate 1 tab PO DAILY 08/09/24 12/02/24 vit A 1000 unit-C 300 mg-E 100 1 tab PO DAILY 08/09/24 12/02/24 [id number] 2 gm-qrxl-jasfoq tablet doxycycline hyclate 100 mg tablet mg 12/02/24 Previous Rx's ?Medication ?Instructions ?Recorded ondansetron 4 mg disintegrating 4 mg PO Q8H PRN nausea and 12/02/24 tablet vomiting #10 tabs sumatriptan succinate 25 mg tablet See Rx Instructions PO .COMPLEX 12/02/24 (Imitrex) #10 tabs Allergies Allergy/AdvReac Type Severity Reaction Status Date / Time No Known Drug Allergies Allergy Verified 12/02/24 18:26 Review of Systems Status of ROS: Reports: 10 or more systems reviewed and unremarkable except as noted in History and below [facility] Medical History History of esophageal dilatation ?Z98.890 - Other specified postprocedural states (ICD-10) GERD (gastroesophageal reflux disease) ?K21.9 - Gastro-esophageal reflux disease without esophagitis (ICD-10) Anxiety with depression ?F41.8 - Other specified anxiety disorders (ICD-10) Surgical History History of shoulder surgery ?Z98.890 - Other specified postprocedural states (ICD-10) History of nasal surgery ?Z98.890 - Other specified postprocedural states (ICD-10) Family History Other Diabetes Heart disease High blood pressure Ovarian cancer Social History Smoking Status: Never smoker Second hand tobacco smoke exposure: No How often do you have a drink containing alcohol: never AUDIT-C Alcohol total score: 0 Non-prescribed substance use: denies use Exam Narrative: Exam Narrative: Well-nourished well-developed patient , appears uncomfortable. Alert and oriented x3. Answers questions appropriately. Mood and affect are appropriate. Thoughts are goal oriented and rational. No tangential or magical thinking noted. Patient speaks in full sentences without needing to catch her breath. Speech is not slurred or pressured. There is no word-finding difficulty. HEENT: Normocephalic atraumatic. Normal facial symmetry. Pupils are equally round reactive to light. Extraocular muscles are intact. Conjunctivae are moist without any icterus noted. Moist mucous membranes. Posterior pharynx is normal. Neck is soft without any lymphadenopathy or thyromegaly. No masses are appreciated. Cardiovascular: Heart is regular rate and rhythm S1 and S2 are present without any murmurs. Lungs: Clear to auscultation bilaterally no wheezes rhonchi or rales are appreciated. Patient takes deep breaths without any discomfort. Abdomen: Soft and nontender nondistended with normal bowel sounds. Extremities: Bilateral lower extremities are without edema. Skin: Well perfused without any obvious rashes. Strength is 5/5 of the upper and lower extremities. Reflexes are 2+ and symmetric at the knees. Cranial nerves 3-12 are normal. Ilsuql-kx-nmds is normal. Zmhq-xf-dnda is normal. There is no nystagmus either horizontally or vertically. Gait is normal. Const: Vital Signs, click to edit/add: Vital Signs - 24 hr 12/02/24 18:20 Temperature 96.4 F L Pulse Rate [Pulse Oximeter] 78 Respiratory Rate 16 Blood Pressure [Ri ght Upper Arm] 123/71 Pulse Oximetry 98 Oxygen Delivery Me thod Room Air Course Course ED Course: IV is established patient is given a repeat dose of Toradol. She is also given Compazine and subcutaneous sumatriptan. However, patient refused the subcutaneous sumatriptan. Given the the severity of her symptoms we did proceed with a head CT and blood work. Head CT was unremarkable. Normal CBC. Normal lactate. Negative test. Negative mono. Inflammatory markers are negative. Normal chemistries. Glucose elevated at 212. Patient states that she last ate approximately 2.5 hours ago. Patient does not endorse increased thirst or urination. No abdominal pain. No weight changes, no blurry vision. Normal LFTs. TSH pending. Patient felt slight relief after repeat Toradol and Compazine. She did not want any more medications and felt comfortable going home at this time. Vital Signs Vital signs: Initial Vital Signs Temperature 96.4 F L 12/02/24 18:20 Temperature Source Temporal Artery Scan 12/02/24 18:20 Pulse Rate 78 12/02/24 18:20 Respiratory Rate 16 12/02/24 18:20 Blood Pressure 123/71 12/02/24 18:20 Blood Pressure Mean 88 12/02/24 18:20 Blood Pressure Position Sitting 12/02/24 18:20 Pulse Oximetry 98 12/02/24 18:20 Oxygen Delivery Method Room Air 12/02/24 18:20 Vital Signs Temperature 96.4 F L 12/02/24 18:20 Pulse Rate 78 12/02/24 18:20 Respiratory Rate 16 12/02/24 18:20 Blood Pressure 123/71 12/02/24 18:20 Pulse Oximetry 98 12/02/24 18:20 Oxygen Delivery Method Room Air 12/02/24 18:20 Temperature 96.4 F L 12/02/24 18:20 Pulse Rate 78 12/02/24 18:20 Respiratory Rate 16 12/02/24 18:20 Blood Pressure 123/71 12/02/24 18:20 Pulse Oximetry 98 12/02/24 18:20 Oxygen Delivery Method Room Air 12/02/24 18:20 Medications Administered Medications: Discontinued Medications Generic Name Dose Route Start Last Admin Trade Name Nick PRN Reason Stop Dose Admin Ketorolac Tromethamine 30 mg 12/02/24 18:50 12/02/24 18:55 Ketorolac 30 Mg/Ml Inj IVP 12/02/24 18:51 30 mg ONCE ONE Administration Prochlorperazine 10 mg 12/02/24 18:49 12/02/24 18:54 Prochlorperazine 5 Mg/Ml Vial IV 12/02/24 18:50 10 mg ONCE ONE Administration Medical Decision Making MDM Narrative Medical decision making narrative: 24-year-old female with migraine headache. We discussed the appropriate way to take Imitrex going forward, we discuss getting a good night's sleep and following up as needed tomorrow. We also discussed hyperglycemia. Patient is encouraged [facility] this coming [facility] to have a repeat glucose check. Lab Data Lab results reviewed: Yes I reviewed the patient's lab results Labs: Lab Results 12/02/24 12/02/24 Range/Units 18:41 19:00 WBC 6.34 (4.50-11.00) K/uL RBC 5.08 (4.00-5.20) m/uL Hgb 14.3 (12.0-16.0) gm/dL Hct 43.5 (33.0-51.0) % MCV 86 (80-100) fL MCH 28 (26-34) pg MCHC 33 (32-36) gm/dL RDW Coeff of Chayo 12.5 (11.5-15.5) % Plt Count 205 (140-440) K/uL Neut % (Auto) 84.2 H (42.0-72.0) % Lymph % (Auto) 11.5 L (20-44) % [place] % (Auto) 4.1 (0.0-11.0) % Eos % (Auto) 0.0 (0.0-7.0) % Baso % (Auto) 0.2 (0.0-3.0) % Neut # (Auto) 5.30 (1.7-7.0) K/uL Lymph # (Auto) 0.70 L (0.90-2.90) K/uL [place] # (Auto) 0.30 (0.00-0.90) K/UL Eos # (Auto) 0.00 (0.00-0.50) K/uL Baso # (Auto) 0.01 (0.00-0.30) K/uL Abs Immat Gran (auto) 0.00 (0.00-0.30) K/uL Imm/Tot Granulo (auto) 0.0 % ESR < 2 L (2-20) mm/hr Sodium 139 (135-149) mmol/L Potassium 4.2 (3.6-5.1) mmol/L Chloride 105 (96-114) mmol/L Carbon Dioxide 22 (20-32) mmol/L Anion Gap 12 (7-15) mEq/L BUN 11 (5-24) mg/dL Creatinine 0.7 (0.5-1.5) mg/dL Estimated Creat Clear 126.09 Estimated GFR 125 ml/min Glucose 212 H (60-115) mg/dL Lactate 1.6 (0.5-1.9) mmol/L Calcium 9.4 (8.4-10.6) mg/dL Total Bilirubin 0.4 (0.1-1.5) mg/dL Direct Bilirubin 0.2 (0.0-0.5) mg/dL AST 21 (12-35) U/L ALT 17 (4-35) U/L Alkaline Phosphatase 78 (40-150) U/L C-Reactive Protein < 0.5 L (0.5-1.0) mg/dL Total Protein 6.8 (6.0-8.3) g/dL Albumin 4.8 (3.3-5.0) g/dL Urine HCG, Qual Negative (Negative) Monoscreen Negative (Negative) Imaging Data CT scan - head: Attestation: I have reviewed the pertinent imaging results. Radiologist's impression: CT head without contrast. COMPARISON: None. FINDINGS: Brain parenchyma, CSF spaces, and extra-axial spaces: The mclaughlin-white differentiation is normal. No sign of mass, hemorrhage, or midline shift. No hydrocephalus. No extra-axial fluid collection. Skull base and calvarium: The visualized paranasal sinuses demonstrate no acute or significant findings. The mastoid air cells are clear. The visualized orbits are grossly unremarkable. No skull fracture. IMPRESSION: No evidence of an acute intracranial abnormality. Unremarkable noncontrast head CT. Discharge Plan Discharge Clinical Impression: Migraine, Hyperglycemia Patient Disposition: Home, Self-Care Condition: Stable Additional Instructions: Make sure to get a good night sleep tonight. Going for you can take Imitrex as needed as soon as usual the headache coming on. Recommend you follow-up at the health center in school or with a primary care physician on Thursday to have a repeat sugar check. Yours was elevated today at 212. Prescriptions: No Action magnesium glycinate 1 tab PO DAILY vit A,C,B-Q6-bxak-kyd-umq-cyao 1,000 unit-300mg -100 unit-2 mg tablet 1 tab PO DAILY sertraline [Zoloft] 50 mg tablet 50 mg PO QDAY sumatriptan succinate [Imitrex] 25 mg tablet See Rx Instructions PO .COMPLEX Qty: 10 0RF Rx Instructions: take 1 tab at onset of headache; if no relief may repeat 1 tab after at least 2 hrs; max = 4 tabs/24 hr PO ondansetron 4 mg tablet,disintegrating 4 mg PO Q8H PRN (Reason: nausea and vomiting) Qty: 10 0RF doxycycline hyclate 100 mg tablet Follow Up/Referrals: Provider,Not a Local [Primary Care Provider] - Stand Alone Forms: [place] Info Instructions
[2024-12-02] MEDS: PROCHLORPERAZINE 5 MG/ML VIAL 10 MG IV (18:54)
[2024-12-02] MEDS: KETOROLAC 30 MG/ML inj IVP (18:55)
[2024-12-02 19:00] VITALS: O2SAT 98
[2024-12-02 19:06] LABS: Lactate* 1.6 mmol/L (0.5-1.9)
[2024-12-02 19:07] LABS: Basophils Absolute Auto 0.01 K/uL (0.00-0.30); Basophils Percent Auto 0.2 % (0.0-3.0); Hematocrit 43.5 % (33.0-51.0); Hemoglobin* 14.3 gm/dL (12.0-16.0); Lymphocytes Percent Auto 11.5 % (20-44); Mean Corpuscular HGB Conc 33 gm/dL (32-36); Mean Corpuscular Hemoglobin 28 pg (26-34); Mean Corpuscular Volume 86 fL (80-100); Monocytes Percent Auto 4.1 % (0.0-11.0); Neutrophils Percent Auto 84.2 % (42.0-72.0); Platelet Count* 205 K/uL (140-440); RDW Coefficient of Variation % 12.5 % (11.5-15.5); Red Blood Count 5.08 m/uL (4.00-5.20); White Blood Count* 6.34 K/uL (4.50-11.00)
[2024-12-02 19:09] LABS: Slide Review Reflex No
[2024-12-02 19:22] LABS: Mono Screen* Negative (Negative)
[2024-12-02 19:26] LABS: Ur HCG Qualitative* Negative (Negative)
[2024-12-02 19:33] LABS: Albumin* 4.8 g/dL (3.3-5.0)
[2024-12-02 19:33] LABS: Chloride* 105 mmol/L (96-114)
[2024-12-02 19:34] LABS: Sodium* 139 mmol/L (135-149)
[2024-12-02 19:36] LABS: Alanine Aminotransferase* 17 U/L (4-35); Alkaline Phosphatase* 78 U/L (40-150); Aspartate Amino Transferase* 21 U/L (12-35); Bilirubin Direct* 0.2 mg/dL (0.0-0.5); Bilirubin Total* 0.4 mg/dL (0.1-1.5); Total Protein* 6.8 g/dL (6.0-8.3)
[2024-12-02 19:36] LABS: Creatinine* 0.7 mg/dL (0.5-1.5); Est. Creatinine Clearance* 126.09; Estimated Glomerular Filt Rate 125 ml/min; Potassium* 4.2 mmol/L (3.6-5.1)
[2024-12-02 19:37] LABS: Anion Gap 12 mEq/L (7-15); Blood Urea Nitrogen* 11 mg/dL (5-24); Calcium* 9.4 mg/dL (8.4-10.6); Carbon Dioxide* 22 mmol/L (20-32); Glucose* 212 mg/dL (60-115)
[2024-12-02 19:41] LABS: C Reactive Protein* < 0.5 mg/dL (0.5-1.0)
[2024-12-02 19:49] LABS: Erythrocyte SedimentationRate* < 2 mm/hr (2-20)
[2024-12-02 20:11] VITALS: TEMP 35.8
[2024-12-02 20:12] VITALS: BP 118/70; PULSE 70; RESP 16; TEMP 36.7; O2SAT 98
[2024-12-02 20:14] VITALS: BP 118/70; PULSE 70; RESP 16; TEMP 36.7
[2024-12-02 20:29] LABS: Thyroid Stimulating Hormone* 0.279 uIU/mL (0.270-4.20)
== END 2024-12-02 20:14 | disposition home or self-care (01) ==
PROVIDERS: Emergency Provider Family Medicine
DX: G43.909 Migraine, unspecified, not intractable, without status migrainosus (principal); R73.9 Hyperglycemia, unspecified
CPT/HCPCS: 36415; 70450; 80048; 80076; 81025; 83605; 84443; 85025; 85651; 86140; 86308; 94761; 96374; 96375; 99284; J0780; J1885

== ENCOUNTER 2025-01-13 09:08 | Outpatient (CLI) | payer BC, SELFPAY | END 2025-01-13 09:09 | disposition home or self-care (01) | PROVIDERS: Visit Provider Obstetrics & Gynecology | DX: Z12.4 Encounter for screening for malignant neoplasm of cervix (principal) | CPT/HCPCS: 87624; 87625; 88141; 88142 ==